=== PATIENT | female | born 1965 | race African-American/Black ===

== ENCOUNTER 2023-10-25 09:24 | Outpatient (AMB) | payer BC, SELFPAY ==
--- NOTE | 2023-10-25 09:32 | AM.OFFWIN_ITS ---
Intake Vital Signs 10/25/23 09:35 Height 5 ft 1 in Weight 140 lb BMI 26.4 BP 142/80 H Blood Pressure Location Rt brachial Position Sitting Pulse 97 Pulse Source Pulse Oximeter Temp 97.8 F Temp Source Temporal Artery Scan Pulse Oximetry (%) 97 Oxygen Delivery Method Room Air Intake Visit Reasons: EP Work clearance/COVID +10/19 Intake Note: pt is here for c/o covid + 10/19 would like work clearance Patient Tobacco Use Status: Never used Tobacco Allergies No Known Allergies Allergy (Verified 10/25/23 09:33) Do you need a note to return to daycare/school/sports/work: Yes HPI HPI Comments History of Present Illness Details Pt is a 58yo F who presents for work clearance Needs clearance for back to work post 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 She was + COVID 19 on 10/[address], fatigue, cough She had fever of 102 She has been fever free x 4 days Only symptoms that remain is fatigue Eat and drinking well No paxlovid taken She has been increased fluids without other OTC medicine She is on DAY 6 of infection PFS Patient Tobacco Use Status: Never used Tobacco Review of Systems Const Reports body aches (resolved), Reports chills (esolved), Reports fatigue, Reports fever(s) (afebrile x 4 days) and Reports malaise ENT Denies dysphagia, Denies dizziness, Denies ear discharge, Reports nasal congestion and Denies sore throat Card Denies chest pain, Denies dyspnea and Denies dyspnea on exertion Resp Reports cough, Denies dyspnea and Denies dyspnea on exertion GI Denies abdominal pain, Denies constipation, Denies dysphagia, Denies diarrhea and Denies nausea Neuro Denies dizziness Endo Reports fatigue Physical Exam Vital Signs: Last Vital Signs Temp 97.8 F 10/25/23 09:35 Pulse 97 10/25/23 09:35 BP 142/80 H 10/25/23 09:35 Pulse Ox 97 10/25/23 09:35 Oxygen Delivery Method Room Air 10/25/23 09:35 BMI result Body Mass Index 26.4 General: Non-toxic, NAD. Speaking full sentences. Wearing mask Skin: Warm dry throughout Eye: PERRL, EOMI HENT: Airway patent. Uvula midline. No pharyngeal erythema or edema. No FORMING ACID DUMPER. Bilateral canals clear. TM non-erythematous, non-bulging. No TM perforation or hemotympanum noted. Respiratory: CTA bilaterally. No wheezes, rales or rhonchi Cardiac: RRR. No murmur MSK: No midline tenderness. Full ROM extremities. Neurology: A/O x 3. No aphasia or facial droop. Equal strength. Gait without abnormality Psych: Good mood and affect Assessment & Plan Assessment & Plan (1) Post covid-19 condition, unspecified: Code(s): U09.9 - Post COVID-19 condition, unspecified Plan Patient seen and evaluated. She is on day 6 of COVID. She has been fever free for 4 days. Discussed with her that she has to wear a mask for a total of 10 days from symptom onset. She has clear lungs to examination and is in no acute distress. Patient was found to be hypertensive in the office and states that she has white coat syndrome. She denies any headaches or dizziness, chest pain or palpitations there was advised to monitor her blood pressure and follow-up with her primary care provider in regard to this. Patient was cleared to go back to work with strict mass going for an additional 4 days. She will go to the emergency department with any new onset of symptoms or concerns. Patient gave verbal understanding and has no additional questions at this time. Coding Level of Care Code Est Pt Level 3 (08003) Diagnoses Post covid-19 condition, unspecified U09.9
[2023-10-25 09:35] VITALS: BP 142/80; PULSE 97; TEMP 36.6; O2SAT 97; BMI 26.4
== END 2023-10-25 10:06 | disposition home or self-care (01) ==
PROVIDERS: PCP Internal Medicine; Visit Provider Physician Assistant
DX: U09.9 Post COVID-19 condition, unspecified (principal)
CPT/HCPCS: 99213

== ENCOUNTER 2023-11-20 13:39 | Outpatient (REF) | payer BC, SELFPAY ==
[2023-11-20 16:33] LABS: Appearance Urine Clear; Color Urine Yellow; Glucose Urine UA Negative (Negative); Leukocyte Esterase Urine Trace (Negative); Nitrite Urine Negative (Negative); Specific Gravity - Urine <= 1.005 (1.005-1.025); UMIC TRIGGER UACC YES; Urine Blood Negative (Negative); Urine Ketones Negative (Negative); Urine Protein Negative (Neg-Trace)
[2023-11-20 16:46] LABS: MANUAL DIFF FLAG NO
[2023-11-20 16:51] LABS: Basophils Percent Auto 0.6 % (0-2); Eosinophils Absolute Auto 0.2 X10*3/uL (0.0-0.4); Eosinophils Percent Auto 3.2 % (0-4); Hematocrit 36.7 % (37.0-47.0); Hemoglobin 11.5 g/dl (12.0-16.0); Imm Gran Abs Auto 0.02 X10*3/uL (0.00-0.03); Imm Gran Pct Auto 0.3 % (0.0-0.4); Lymphocytes Absolute Auto 2.5 X10*3/uL (1.2-4.9); Mean Corpuscular HGB Conc 31.3 g/dl (31.0-35.0); Mean Corpuscular Volume 79.8 fL (80.0-98.0); Mean Platelet Volume 11.8 fL (9.4-12.3); Monocytes Absolute Auto 0.7 X10*3/uL (0.1-1.2); Monocytes Percent Auto 9.8 % (2-11); Neutrophils Absolute Auto 3.4 x10*3/uL (2.0-8.3); Neutrophils Percent Auto 49.1 % (45-73); Platelet Count 357 X10*3/uL (160-400); Red Cell Distribution Width 15.8 % (11.0-16.0); White Blood Count 6.9 X10*3/uL (4.8-10.8)
[2023-11-20 17:03] LABS: Bacteria Urine None Seen (None Seen); Hyaline Casts Urine 0-2 /LPF (0-2); RBC Urine 0-2 /HPF (0-2); Squamous Epithelial Cell Urine 0-2 /HPF (0-2); WBC Urine 0-5 /HPF (0-5)
[2023-11-20 17:38] LABS: Alanine Aminotransferase 20 U/L (0-31); Alkaline Phosphatase 97 U/L (39-117); Anion Gap 11 (12-20); Aspartate Amino Transferase 22 U/L (5-31); Bilirubin Total 0.9 mg/dL (0.0-1.0); Blood Urea Nitrogen 7 mg/dL (9-16); Calcium 9.8 mg/dL (8.4-10.2); Carbon Dioxide 27 mmol/L (22-29); Chloride 104 mmol/L (96-108); Cholesterol 218 mg/dL (<200); Estimated Glomerular Filt Rate > 60; Glucose Random 126 mg/dL (60-115); HDL Cholesterol 37 mg/dL (>40); LDL Cholesterol Calculated 133 mg/dL (<100); Potassium 3.5 mmol/L (3.3-5.1); Sodium 138 mmol/L (135-145); Triglycerides 244 mg/dL (<150)
[2023-11-20 17:49] LABS: TSH reflex Free T4 0.93 uIU/mL (0.32-4.0)
[2023-11-26 18:19] LABS: Vitamin D 25-OH, D2 <4 ng/mL; Vitamin D 25-OH, D3 16 ng/mL; Vitamin D 25-OH, Total 16 ng/mL (30-100)
== END 2023-11-20 13:40 | disposition home or self-care (01) ==
LOC: HO.HMGCLDS 13:39
PROVIDERS: PCP Nurse Practitioner Primary Care; Visit Provider Nurse Practitioner Primary Care
DX: E55.9 Vitamin D deficiency, unspecified (principal); D64.9 Anemia, unspecified; E87.8 Other disorders of electrolyte and fluid balance, not elsewhere classified; E78.5 Hyperlipidemia, unspecified; E03.9 Hypothyroidism, unspecified
CPT/HCPCS: 36415; 80053; 80061; 81001; 82306; 84443; 85025

== ENCOUNTER 2023-11-21 08:57 | Outpatient (AMB) | payer BC, SELFPAY ==
[2023-11-21 09:02] VITALS: BP 162/78; PULSE 84; O2SAT 99; BMI 25.9
--- NOTE | 2023-11-21 09:02 | MHC.PC.OV ---
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 Intake Note: Pt is here today as a New Patient to [facility]/ PE: Never had a colonoscopy Allergies No Known Allergies Allergy (Verified 11/21/23 09:14) Medication List - Last Reconciled 11/21/23 by DOTTIE Mendes No Known Home Meds Tobacco use date assessed: 11/21/23 Dental Screening Dental Screen Date: 11/21/23 Did you have a dental visit in the last 12 months?: Yes Did you have a dental problem in the last 6 months where you did not have access to dental care?: No Was dental information given to patient?: Patient has dentist HPI HPI Comments History of Present Illness Details Patient is a 58-year-old female here to [facility] and have her annual physical exam. She is due for her flu immunization which she will get today in office. She is due for COVID immunization. She is due for colonoscopy, will refer to Stephanie CARABALLO. She is up-to-date with her mammogram which she last had done through [facility]. She is due for Pap smear, last one was performed April 2021. She has no complaints time the appointment. [facility] Surgical History (Updated 11/21/23 @ 09:39 by DOTTIE Mendes) History of cholecystectomy Family History Mother Non-insulin dependent type 2 diabetes mellitus Social History Housing: Condominium Patient Tobacco Use Status: Never used Tobacco e-Cigarette/Vaping Use: Never Used service: No Current occupational status: employed Cognitive needs: No Hearing needs: No Vision needs: No Questionnaire PHQ-9 Over the last 2 weeks, how often have you been bothered by any of the following problems? 1. Little interest or pleasure in doing things: not at all 2. Feeling down, depressed, or hopeless: not at all 3. Trouble falling or staying asleep, or sleeping too much: not at all 4. Feeling tired or having little energy: not at all 5. Poor appetite or overeating: not at all 6. Feeling bad about yourself - or that you are a failure or have let yourself or your family down: not at all 7. Trouble concentrating on things, such as reading the newspaper or watching television: not at all 8. Moving or speaking so slowly that other people could have noticed. Or the opposite - being so fidgety or restless that you have been moving around a lot more than usual: not at all 9. Thoughts that you would be better off or of hurting yourself in some way: not at all Total score: 0 Depression Screening Interpretation: Negative Depression Screening Done: Yes 77151 - PHQ-9 Billing: Yes Source: Developed by Drs. Musa Ch, Nicolasa Back, Abdias Nunez and colleagues, with an educational bakari from [employer]. Thrive Questionnaire Date Thrive assessed: 11/21/23 I am a: Patient What is your living situation today?: I have a steady place to live Within the past 12 months, did the food you bought not last and you didn't have the money to get more?: Never true Within the past 12 months, did you worry whether your food would run out before you got money to buy more?: Never true Do you have trouble paying for medicines?: No Do you have trouble getting transportation to medical appointments?: No Do you have trouble paying your heating and electricity bill?: No Do you have trouble taking care of your child, family member or friend?: No Do you have trouble with day-to-day activities such as bathing, preparing meals, shopping, managing finances, etc.?: No Are you currently unemployed and looking for a job?: No Are you interested in more education?: No AUDIT C Alcohol Use Questionnaire (AUDIT-C) 1. How often do you have a drink containing alcohol?: Never Total Score: 0 WONG-7 AMB Questionnaire WONG-7 Date WONG - 7 assessed: 11/21/23 Feeling nervous, anxious, or on edge: 0 = Not at all Not being able to stop or control worryin = Not at all Worrying too much about different things: 0 = Not at all Trouble relaxin = Not at all Being so restless that it is hard to sit still: 0 = Not at all Becoming easily annoyed or irritable: 0 = Not at all Feeling afraid as if something awful might happen: 0 = Not at all Total WONG-7 score (0-4 normal; 5-9 mild; 10-14 moderate; 15-21 severe): 0 Source: Developed by Drs. Musa Ch, Nicolasa Back, Abdias Nunez and colleagues, with an educational bakari from [employer]. WONG-7 Assessment Billing WONG-7 Assessment Tool: WONG-7 Assessment 91869 Review of Systems Const Details: Constitutional : No Weight loss, No Fever, No Chills, No Fatigue, No Malaise ENT/Mouth : No sore throat, No Rhinorrhea Eyes: No Eye Pain, No Swelling, No Redness Cardiovascular : No Chest Pain, No SOB, No Dyspnea on Exertion, No Orthopnea, No Edema, No Palpitations Respiratory : No Cough, No Sputum, No Wheezing Gastrointestinal : No Nausea, No Vomiting, No Diarrhea, No Constipation, No abdominal Pain, No Hematochezia, No Melena Genitourinary : No Dysuria, No Urinary Frequency, No Hematuria, Musculoskeletal : No joint pain, No Myalgias, No Joint Swelling Skin : No Skin Lesions, No rash Neuro : No Weakness, No Numbness, No Dizziness, No Headache Psych : No Anxiety/Panic, No Depression Heme/Lymph: No Bruising, No Bleeding,No Lymphadenopathy Endocrine : No Polyuria, No Polydipsia All other systems reviewed and are negative Physical exam (Primary Care) Vital Signs: Last Vital Signs Pulse 84 11/21/23 09:02 BP 162/78 H 11/21/23 09:02 Pulse Ox 99 11/21/23 09:02 Oxygen Delivery Method Room Air 11/21/23 09:02 Care Plan Goal for BP management: Patient does not want to start blood pressure medication at this time. She states that readings at home are off the much lower. Next steps: Patient wants to take blood pressure measurement readings at home. She will send in measurement readings over the next 2 weeks, if they remain elevated patient has agreed to start medication. BMI result Body Mass Index 25.9 Tobacco/Smoking Status: Tobacco use Status Tobacco use date assessed 11/21/23 11/21/23 09:08 Patient Tobacco Use Status Never used Tobacco 11/21/23 09:04 e-Cigarette/Vaping Use Never Used 11/21/23 09:08 PHQ-9: PHQ-9 Score PHQ-9: Total score 0 11/21/23 10:02 Depression Screening Interpretation: Negative Thrive Assessment: Date of Thrive Assessment Date Thrive assessed 11/21/23 11/21/23 09:47 Const Other: Appearance: Alert.? Oriented X3.? No acute distress.? Head: Normocephalic Eyes: Pupils equal, round and reactive to light.? ENT: Pharynx normal.?TM intact, pearly nash. Septum midline. Neck: Normal inspection.? Neck supple.? CVS: Normal heart rate and rhythm.? Pulses normal.? Respiratory: No respiratory distress.? Breath sounds normal.? Abdomen: Soft and nontender.? Skin: Skin warm and dry.? Normal skin color.? Normal skin turgor.? Extremities: No lower extremity edema.? Back: No midline tenderness, no C-spine tenderness, full range of motion, no CVA tenderness bilaterally Neuro: Oriented X 3.? No motor deficit.? No sensory deficit. CN 2-12 intact Office Procedures Flu Questionnaire Does the patient have a severe egg allergy?: No Does the patient have severe life threatening allergies?: No Does the patient have a fever or illness today?: No Has the patient ever had Guillain-Elmer Syndrome?: No Has the patient ever had any past reaction to a flu shot?: No Immunizations flu vacc [id number] 6mos up(PF) 60 mcg(15 mcgx4)/0.5 mL IM syringe Performing Provider: DOTTIE Mendes Performing Location: [facility] Administered by: Zora Angelo CMA on 11/21/23 09:48 Dose Route Admin Location Dispensed Lot Number Expiration Date NDC Lead Application Architect 0.5 mL IM Right Deltoid 0.5 mL [id number] 05/31/24 20115-500-[address] VIS Given Date VIS Provided VIS Publication Date 11/21/23 Single Vaccine 21 Eligibility Eligibility Date Funding Source Not VFC Eligible 11/21/23 Private Results Reviewed Results Reviewed: Sodium 138 135-145 mmol/L Potassium 3.5 3.3-5.1 mmol/L CL 104 96-108 mmol/L CO2 27 22-29 mmol/L Gap 11 L 12-20 BUN 7 L 9-16 mg/dL Creat 0.72 0.5-1.4 mg/dL EGFR > 60 NOTE: For -[place] individuals, multiply the result by 1.210. Chronic Kidney Disease: Estimated GFR < 60 mL/min/1.73m2 Severe Kidney Disease: Estimated GFR < 15 mL/min/1.73m2 Glucose, Random 126 H 60-115 mg/dL CA 9.8 8.4-10.2 mg/dL Total Bili 0.9 0.0-1.0 mg/dL AST (GOT) 22 5-31 U/L ALT (GPT) 20 0-31 U/L Protein, Total 7.0 6.5-8.0 g/dL Alb 4.0 3.5-5.0 g/dL Triglyceride 244 H <150 mg/dL Desirable Triglyceride: less than 150 mg/dL Borderline High Triglyceride 150-199 mg/dL High Triglyceride: 200-499 mg/dL Very High Triglyceride: greater than or equal to 5OO mg/dL Cholesterol 218 H <200 mg/dL Desirable Cholesterol: less than 200 mg/dL Borderline High Cholesterol: 200-239 mg/dL High Cholesterol: greater than 239 mg/dL LDL Calculated 133 H <100 mg/dL Desirable LDL: less than 100 mg/dL Near Optimal/Above Optimal LDL: 110-129 mg/dL Borderline High LDL: 130-159 mg/dL High LDL: 160-189 mg/dL Very High LDL: greater than or equal to 190 mg/dL HDL 37 L >40 mg/dL Desirable HDL: greater than 40 mg/dL Note: This HDL assay may give artificially low results in patients with liver disease. Alk Phos 97 39-117 U/L TSH 0.93 0.32-4.0 uIU/mL WBC 6.9 4.8-10.8 X10*3/uL RBC 4.60 4.20-5.50 X10*6/uL HGB 11.5 L 12.0-16.0 g/dl HCT 36.7 L 37.0-47.0 % MCV 79.8 L 80.0-98.0 fL MCH 25.0 L 27.0-33.0 pg MCHC 31.3 31.0-35.0 g/dl RDW 15.8 11.0-16.0 % PLT 357 160-400 X10*3/uL MPV 11.8 9.4-12.3 fL Neut Pct Auto 49.1 45-73 % ImGran Pct Auto 0.3 0.0-0.4 % Lymp Pct Auto 37.0 20-40 % Coles Pct Auto 9.8 2-11 % Eos Pct Auto 3.2 0-4 % Baso Pct Auto 0.6 0-2 % NRBC Pct Auto 0.0 0.0-0.2 /100WBC ANC Neut Abs # 3.4 2.0-8.3 x10*3/uL ImGran Abs Auto 0.02 0.00-0.03 X10*3/uL Lymph Abs Auto 2.5 1.2-4.9 X10*3/uL Coles Abs Auto 0.7 0.1-1.2 X10*3/uL Eos Abs Auto 0.2 0.0-0.4 X10*3/uL Baso Abs Auto 0.0 0.0-0.2 X10*3/uL NRBC Abs Auto 0.000 0.0-0.012 X10*3/uL Assessment and Plan Assessment & Plan (1) Encounter for routine adult physical exam with abnormal findings: Comment: Patient had labs drawn. Flu immunization given today in office. Will refer to GI for colonoscopy. Will refer to Stephanie MORSE for Pap smear well-woman visit. Code(s): Z00.01 - Encounter for general adult medical examination with abnormal findings (2) Hypertension: Comment: Patient denies medication at this time. She is going to take a log book at home and get back to the office with what her values have been over the past 2 weeks. If values are still elevated at home the patient has agreed to start medication. She has been educated on signs of worsening symptoms when to report back to the office or when to present to the emergency room. Code(s): I10 - Essential (primary) hypertension Qualifiers: Hypertension type: primary hypertension Qualified Code(s): I10 - Essential (primary) hypertension (3) Hyperlipidemia: Comment: Patient declines statin therapy at this time. Would like to try to lower lipid level with diet and exercise. Will continue to monitor Code(s): E78.5 - Hyperlipidemia, unspecified Qualifiers: Hyperlipidemia type: unspecified Qualified Code(s): E78.5 - Hyperlipidemia, unspecified (4) Anemia: Comment: Patient would like to increase dietary iron. Patient has been educated on signs of worsening symptoms and when to report back to the office or when to present to the emergency room. Code(s): D64.9 - Anemia, unspecified Qualifiers: Anemia type: unspecified type Qualified Code(s): D64.9 - Anemia, unspecified Plan Patient will return to the office in 3 months for follow-up. Orders: Orders Comprehensive Met. Panel 11/20/23 E87.8 - Other disorders of electrolyte and fluid balance, not elsewhere classified Lipid Panel 11/20/23 E78.5 - Hyperlipidemia, unspecified Vitamin D 25-OH (D2 and D3) 11/20/23 E55.9 - Vitamin D deficiency, unspecified TSH reflex Free T4 11/20/23 E03.9 - Hypothyroidism, unspecified UA CC w/rflx Micro + Cult 11/20/23 E86.0 - Dehydration Complete Blood Count Auto Diff 11/20/23 D64.9 - Anemia, unspecified Influenza [id number] Immunization Today Z23 - Encounter for immunization Referrals Gastroenterology Referral Z12.11 - Encounter for screening for malignant neoplasm of colon GOVERNMENT GUARD Referral Z12.4 - Encounter for screening for malignant neoplasm of cervix Coding Level of Care Code New Pt Level 4 (15637) Diagnoses Encounter for routine adult physical exam with abnormal findings Z00.01 Primary hypertension I10 Hypertension type: primary hypertension Hyperlipidemia, unspecified hyperlipidemia type E78.5 Hyperlipidemia type: unspecified Anemia, unspecified type D64.9 Anemia type: unspecified type Additional Codes WONG-7 Assessment Billing - WONG-7 Assessment Tool: WONG-7 Assessment 91188 ([id number])
== END 2023-11-21 09:56 | disposition home or self-care (01) ==
PROVIDERS: PCP Internal Medicine; Visit Provider Nurse Practitioner Primary Care
DX: Z00.01 Encounter for general adult medical examination with abnormal findings (principal); I10 Essential (primary) hypertension; E78.5 Hyperlipidemia, unspecified; D64.9 Anemia, unspecified
CPT/HCPCS: 90471; 90686; 99204

== ENCOUNTER 2024-01-10 08:28 | Outpatient (AMB) | payer BC, SELFPAY ==
--- NOTE | 2024-01-10 08:39 | MHC.OFFVIS ---
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 She is doing well with no concerns. Attempting to eat a healthy diet with calcium and vitamin D and stays active with exercise. Currently not sexually active. Denies any vaginal dryness or irritation. No menses in several years. STI testing offered; she declines. Last pap smear; unknown date. Last mammogram; not UTD. Colonoscopy is being planned. Denies any family history of breast, ovarian or colon cancer. 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-[employer] Cognitive needs: No Hearing needs: No Vision needs: No Female Reproductive History Menstrual control method: none Total pregnancies: 1 Full term: 1 History of abnormal pap smear: No (per patient ,previous pap neg.2022) Review of Systems Const All systems reviewed & are unremarkable except as noted in HPI and below Reports as per HPI Eyes Reports no additional complaints ENT Reports no additional complaints Card Reports no additional complaints Resp Reports no additional complaints GI Reports as per HPI and Reports no additional complaints Reports as per HPI Musc Reports no additional complaints Skin/Breast Reports as per HPI Neuro Reports no additional complaints Psych Reports no additional complaints Endo Reports no additional complaints Vicente/Lymph Reports no additional complaints Aller/Immun Reports no additional complaints Physical Exam Const General: cooperative, healthy appearing, no acute distress, well developed and alert Orientation/consciousness: patient oriented x3 HEENT Head: Yes normal to inspection Eyes General: appearance normal, both eyes and all related structures Neck Neck: Yes normal visual inspection Thyroid: Thyroid normal Chest Chest palpation & inspection: normal inspection of the chest and other (no puckering, dimpling, peau de orange, retraction, discharge, masses) Breast/axilla inspection: normal inspection of the breasts Breast/axilla palpation: normal palpation of the breasts Resp Effort & Inspection: normal respiratory effort GI Inspection: Yes normal to inspection Palpation (GI): Soft to palpation Rectal Exam - Female: deferred General: Yes bladder normal to palpation External Female Exam: normal external appearance and normal appearance of the urethra Speculum Exam - Vagina: normal appearance of the vagina, normal palpation, normal vaginal discharge and vagina atrophic Speculum Exam - Cervix: normal appearance of the cervix, normal palpation and Other cervical findings present (Short cervix appearance, bled w/pap) Bimanual exam- vagina & uterus: normal bimanual exam, normal palpation, uterine size normal, bladder normal to palpation, normal palpation and non-tender Bimanual Exam- Adnexa, other: no masses Skin General skin exam: no rashes or lesions noted Rashes: no rashes Neuro General: patient oriented x3 Cognition (Neuro): normal cognition Extrem General: Yes normal to inspection Psych Attitude: cooperative Thought process: Normal thought process present Assessment & Plan Assessment & Plan (1) Encounter for well woman exam with routine gynecological exam: Code(s): Z01.419 - Encounter for gynecological examination (general) (routine) without abnormal findings Plan Discussed: Current recommendations for pap smears per ASCCP guidelines. Breast awareness, periodic self breast exams and yearly mammogram. Maintain a healthy lifestyle, well balanced diet including Calcium 1,200 mg and Vitamin D 600 IU daily, and routine exercise. Use of condoms for STI if indicated. Contact the office with any postmenopausal bleeding. Patient verbalizes understanding and agrees to the plan of care. She was given opportunity to ask questions and all questions were answered to the best of my ability. RTO in 1 year for annual vegetable buncher exam. This note is constructed using voice recognition software. While every effort has been made to ensure accuracy, doctorate of chiropractic errors may have been included. Orders: Orders MM tomosynthesis screening BI Today Z12.31 - Encounter for screening mammogram for malignant neoplasm of breast Coding Level of Care Code New Pt Prev Care 40-64y(56869) Diagnoses Encounter for well woman exam with routine gynecological exam Z01.419
[2024-01-10 08:55] VITALS: BP 148/76; BMI 28.2
== END 2024-01-10 09:20 | disposition home or self-care (01) ==
PROVIDERS: PCP Nurse Practitioner Primary Care; Visit Provider Advanced Practice Midwife
DX: Z01.419 Encounter for gynecological examination (general) (routine) without abnormal findings (principal)
CPT/HCPCS: 99386

== ENCOUNTER 2024-01-10 08:28 | Outpatient (REF) | payer BC, SELFPAY ==
[2024-01-13 20:09] LABS: HPV mRNA E6/E7 rflx Not Detected (Not Detected)
== END 2024-01-10 08:29 | disposition home or self-care (01) ==
LOC: HO.LNP 08:28
PROVIDERS: PCP Nurse Practitioner Primary Care; Visit Provider Advanced Practice Midwife
DX: Z01.419 Encounter for gynecological examination (general) (routine) without abnormal findings (principal); Z11.51 Encounter for screening for human papillomavirus (HPV)
CPT/HCPCS: 87624; 88142

== ENCOUNTER 2024-04-03 08:50 | Outpatient (AMB) | payer BC, SELFPAY ==
[2024-04-03 08:51] VITALS: BP 148/74; PULSE 74; O2SAT 98; BMI 27.2
--- NOTE | 2024-04-03 08:51 | MHC.PC.OV ---
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 Accompanied by: Self / Same As Patient Allergies No Known Allergies Allergy (Verified 04/03/24 09:18) Medication List - Last Reconciled 04/03/24 by DOTTIE Mendes amlodipine 10 mg PO DAILY cholecalciferol (vitamin D3) 50,000 units PO QWEEK Tobacco use date assessed: 04/03/24 Dental Screening Dental Screen Date: 04/03/24 Did you have a dental visit in the last 12 months?: Yes Did you have a dental problem in the last 6 months where you did not have access to dental care?: No Was dental information given to patient?: Patient has dentist HPI HPI Comments History of Present Illness Details Patient is a 59-year-old female in today for follow-up on hypertension. Patient has been keeping record at home with blood pressure logs at home which demonstrated blood pressure in control. Patient states that she did run out of medication 3 days prior to this appointment has not taken it for the past 3 days. Patient denies chest pain, headache, dizziness, numbness, nausea, vomiting, diarrhea. Patient instructed to continue taking 10 mg of amlodipine at night. Patient will also get labs today including CBC, CMP, A1c, vitamin-D. Patient has strong family history of diabetes type 2. Previous CMP demonstrated slightly elevated random glucose levels, patient denies polyuria polydipsia. Patient has been eating dietary iron for slight anemia. Patient has upcoming appointment for colonoscopy. Patient is due for mammogram in 1 month. Referral is in. 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 1. Little interest or pleasure in doing things: not at all 2. Feeling down, depressed, or hopeless: not at all 3. Trouble falling or staying asleep, or sleeping too much: not at all 4. Feeling tired or having little energy: not at all 5. Poor appetite or overeating: not at all 6. Feeling bad about yourself - or that you are a failure or have let yourself or your family down: not at all 7. Trouble concentrating on things, such as reading the newspaper or watching television: not at all 8. Moving or speaking so slowly that other people could have noticed. Or the opposite - being so fidgety or restless that you have been moving around a lot more than usual: not at all 9. Thoughts that you would be better off or of hurting yourself in some way: not at all Total score: 0 Depression Screening Interpretation: Negative Depression Screening Done: Yes 87553 - PHQ-9 Billing: Yes Source: Developed by Drs. Musa Ch, Nicolasa Back, Abdias Nunez and colleagues, with an educational bakari from [employer]. Thrive Questionnaire Date Thrive assessed: 04/03/24 I am a: Patient What is your living situation today?: I have a steady place to live Within the past 12 months, did the food you bought not last and you didn't have the money to get more?: Never true Within the past 12 months, did you worry whether your food would run out before you got money to buy more?: Never true Do you have trouble paying for medicines?: No Do you have trouble getting transportation to medical appointments?: No Do you have trouble paying your heating and electricity bill?: No Do you have trouble taking care of your child, family member or friend?: No Do you have trouble with day-to-day activities such as bathing, preparing meals, shopping, managing finances, etc.?: No Are you currently unemployed and looking for a job?: No Are you interested in more education?: No Please select the resources that you would like help with: None Currently or been in a relationship where the following occur: no concerns reported THRIVE Score: 0 AUDIT C Alcohol Use Questionnaire (AUDIT-C) 1. How often do you have a drink containing alcohol?: Never 3. How often do you have six or more drinks on one occasion?: Never Total Score: 0 Score Reviewed/Action Taken: Yes WONG-7 AMB Questionnaire WONG-7 Date WONG - 7 assessed: 04/03/24 Feeling nervous, anxious, or on edge: 0 = Not at all Not being able to stop or control worryin = Not at all Worrying too much about different things: 0 = Not at all Trouble relaxin = Not at all Being so restless that it is hard to sit still: 0 = Not at all Becoming easily annoyed or irritable: 0 = Not at all Feeling afraid as if something awful might happen: 0 = Not at all Total WONG-7 score (0-4 normal; 5-9 mild; 10-14 moderate; 15-21 severe): 0 Source: Developed by Drs. Musa Ch, Nicolasa Back, Abdias Nunez and colleagues, with an educational bakari from [employer]. WONG-7 Assessment Billing WONG-7 Assessment Tool: WONG-7 Assessment 01541 Review of Systems Const All systems reviewed & are unremarkable except as noted in HPI and below Physical exam (Primary Care) Vital Signs: Last Vital Signs Pulse 74 04/03/24 08:51 BP 148/74 H 04/03/24 08:51 Pulse Ox 98 04/03/24 08:51 Oxygen Delivery Method Room Air 04/03/24 08:51 Care Plan Goal for BP management: Patient had refill of amlodipine 10 mg BMI result Body Mass Index 27.2 Tobacco/Smoking Status: Tobacco use Status Tobacco use date assessed 04/03/24 04/03/24 08:52 Patient Tobacco Use Status Never used Tobacco 04/03/24 08:52 e-Cigarette/Vaping Use Never Used 04/03/24 08:52 PHQ-9: PHQ-9 Score PHQ-9: Total score 0 04/03/24 08:54 Depression Screening Interpretation: Negative Thrive Assessment: Date of Thrive Assessment Date Thrive assessed 04/03/24 04/03/24 08:54 Currently or been in a relationship where the following occur: no concerns reported Const Other: Appearance: Alert.? Oriented X3.? No acute distress.? Head: Normocephalic, atraumatic. Neck: Normal inspection.? Neck supple.? CVS: Normal heart rate and rhythm.? Pulses normal.? Respiratory: No respiratory distress.? Breath sounds normal.? Neuro: Oriented X 3.? Results Reviewed Results Reviewed: WBC 6.9 4.8-10.8 X10*3/uL RBC 4.60 4.20-5.50 X10*6/uL HGB 11.5 L 12.0-16.0 g/dl HCT 36.7 L 37.0-47.0 % MCV 79.8 L 80.0-98.0 fL MCH 25.0 L 27.0-33.0 pg MCHC 31.3 31.0-35.0 g/dl RDW 15.8 11.0-16.0 % PLT 357 160-400 X10*3/uL MPV 11.8 9.4-12.3 fL Neut Pct Auto 49.1 45-73 % ImGran Pct Auto 0.3 0.0-0.4 % Lymp Pct Auto 37.0 20-40 % Fannin Pct Auto 9.8 2-11 % Eos Pct Auto 3.2 0-4 % Baso Pct Auto 0.6 0-2 % NRBC Pct Auto 0.0 0.0-0.2 /100WBC ANC Neut Abs # 3.4 2.0-8.3 x10*3/uL ImGran Abs Auto 0.02 0.00-0.03 X10*3/uL Lymph Abs Auto 2.5 1.2-4.9 X10*3/uL Fannin Abs Auto 0.7 0.1-1.2 X10*3/uL Eos Abs Auto 0.2 0.0-0.4 X10*3/uL Baso Abs Auto 0.0 0.0-0.2 X10*3/uL NRBC Abs Auto 0.000 0.0-0.012 X10*3/uL Assessment and Plan Assessment & Plan (1) Anemia: Comment: Patient would like to increase dietary iron. Will draw CBC today. Patient has been educated on signs of worsening symptoms and when to report back to the office or when to present to the emergency room. Code(s): D64.9 - Anemia, unspecified Qualifiers: Anemia type: unspecified type Qualified Code(s): D64.9 - Anemia, unspecified (2) Vitamin D deficiency: Comment: Patient has been taking 52990 units vitamin D3 per week. Will redraw today. Code(s): E55.9 - Vitamin D deficiency, unspecified (3) Hyperlipidemia: Comment: Patient declines statin therapy at this time. Would like to try to lower lipid level with diet and exercise. Will continue to monitor. Code(s): E78.5 - Hyperlipidemia, unspecified Qualifiers: Hyperlipidemia type: unspecified Qualified Code(s): E78.5 - Hyperlipidemia, unspecified (4) Hypertension: Comment: Will refill amlodipine. Patient will continue to record blood pressure values at home. Code(s): I10 - Essential (primary) hypertension Qualifiers: Hypertension type: primary hypertension Qualified Code(s): I10 - Essential (primary) hypertension Plan: Patient will get labs. Orders: Orders Hemoglobin A1c Today Z13.1 - Encounter for screening for diabetes mellitus Complete Blood Count Auto Diff Today D64.9 - Anemia, unspecified Comprehensive Met. Panel Today Z91.89 - Other specified personal risk factors, not elsewhere classified Medications: New amlodipine 10 mg PO DAILY 90 tabs 0RF Discontinued amlodipine Discontinued Reason: Doctor's Order 5 mg PO DAILY 30 tabs 0RF Coding Level of Care Code Est Pt Level 3 (66821) Diagnoses Anemia, unspecified type D64.9 Anemia type: unspecified type Vitamin D deficiency E55.9 Hyperlipidemia, unspecified hyperlipidemia type E78.5 Hyperlipidemia type: unspecified Primary hypertension I10 Hypertension type: primary hypertension Additional Codes WONG-7 Assessment Billing - WONG-7 Assessment Tool: WONG-7 Assessment 36980 ([id number]) Time Spent (min) 26
== END 2024-04-03 10:21 | disposition home or self-care (01) ==
PROVIDERS: PCP Nurse Practitioner Primary Care; Visit Provider Nurse Practitioner Primary Care
DX: D64.9 Anemia, unspecified (principal); E55.9 Vitamin D deficiency, unspecified; E78.5 Hyperlipidemia, unspecified; I10 Essential (primary) hypertension
CPT/HCPCS: 99213

== ENCOUNTER → 2024-04-13 09:20 | Outpatient (AMB) | payer BC, SELFPAY ==
[2024-04-13 09:25] VITALS: BP 156/77; PULSE 84; BMI 27.0
--- NOTE | 2024-04-13 09:25 | MHC.OFFVIS ---
Vital Signs 04/13/24 09:25 Height 5 ft 1 in Weight 142 lb 13.753 oz BMI 27.0 BP 156/77 H Blood Pressure Location Lt brachial Position Sitting Pulse 84 Intake Visit Reasons: Colonoscopy screening Intake Note: Rosa presents to in office visit today for colonoscopy screening. CC: This will be the patient's first colonoscopy. She denies having any GI symptoms or concerns today.. Allergies No Known Allergies Allergy (Verified 04/13/24 09:25) HPI HPI Colonoscopy screening: Details: 59 year old? female with past medical history of anemia, hyperlipidemia, hypertension is here today for pre colonoscopy screening.? Patient was sent to us by her PCP.? This is her first colonoscopy screening.? Patient denies any gastrointestinal symptoms in the past or at present.? Denies any personal or family history of gastrointestinal disease, colon polyps, or CRC.? Denies history of difficulty with sedation or anesthesia in the past.? Negative for history of sleep apnea.? Denies any history of cardiac, renal, pulmonary, or hepatic disease.?? No history of infectious? diseases like hepatitis A, B, C, HIV or tuberculosis.? 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[employer] Cognitive needs: No Hearing needs: No Vision needs: No Review of Systems Const Denies weight gain and Denies weight loss ENT Reports no additional complaints, Denies dysphagia and Denies odynophagia Card Reports no additional complaints Resp Reports no additional complaints GI Denies abdominal pain, Denies belching, Denies melena, Denies bloating, Denies change in bowel habits, Denies dysphagia, Denies excessive flatus, Denies dyspepsia, Denies heartburn, Denies diarrhea, Denies loose stools, Denies nausea, Denies odynophagia and Denies vomiting Musc Reports no additional complaints Neuro Reports no additional complaints Psych Reports no additional complaints Endo Reports no additional complaints Physical Exam Vital Signs: BMI result Body Mass Index 27.0 Const General: healthy appearing, no acute distress and well developed Nutritional Appearance: well nourished Orientation/consciousness: patient oriented x3 Resp Effort & Inspection: normal respiratory effort, able to speak in complete sentences, no tracheal deviation and symmetric chest movement Auscultation: clear to auscultation bilaterally Cardio Rate: regular rate GI Inspection: Yes normal to inspection and No distended Palpation (GI): Soft to palpation, not firm, nontender and No hepatosplenomegaly present Auscultation: normal bowel sounds General: Yes no CVA tenderness Back/Spine/Pelvis Back: no CVA tenderness Skin General skin exam: elasticity normal, turgor normal and dry skin Neuro General: patient oriented x3 Psych Appearance: grossly normal Mental Status: mental status grossly normal Speech and movement: Normal speech and movement present Assessment & Plan Assessment & Plan (1) Screen for colon cancer: Code(s): Z12.11 - Encounter for screening for malignant neoplasm of colon Plan Patient denies any GI, cardiac or respiratory symptoms.? Denies any issues with anesthesia in the past.? Denies any history of sleep apnea.? No history infectious diseases in the past or present.? Not on any anticoagulation therapy.? No family or personal history of colon cancer or polyps.? Patient denies melena, hematochezia, unintentional weight loss or ribbon like stools.? Discussed at length the pre-procedure,? prep, diet & medications as well as what to expect prior, during and after the procedure.?? Stressed the importance of good bowel prep.? Recommended the use of Vaseline or Calmoseptine OTC & baby wipes with bowel movements to promote comfort.? ?Patient verbalizes understanding and agrees to plan of care.? She was given the opportunity to ask questions and all questions answered.? We will see her after the procedure.? Medications: New bisacodyl (Dulcolax (bisacodyl)) take 4 tabs at noon the day before your colonoscopy 20 mg (4 x 5 mg) PO ONCE 1 day 4 tabs 0RF Z12.11 - Encounter for screening for malignant neoplasm of colon polyethylene glycol 3350 (Miralax) As directed by gastroenterology department at [facility] 238 grams PO ONCE 238 grams 0RF Z12.11 - Encounter for screening for malignant neoplasm of colon Coding Level of Care Code New Pt Level 3 (99528) Diagnoses Screen for colon cancer Z12.11 Time Spent (min) 40 Comment 30 minutes spent with patient and additional 10 minutes spent reviewing her records
== END ==
PROVIDERS: PCP Nurse Practitioner Primary Care; Visit Provider Nurse Practitioner Family
DX: Z01.818 Encounter for other preprocedural examination (principal); Z12.11 Encounter for screening for malignant neoplasm of colon
CPT/HCPCS: S0285

== ENCOUNTER → 2024-04-13 09:20 | Outpatient (BNVA) | payer BC, SELFPAY | PROVIDERS: PCP Nurse Practitioner Primary Care; Visit Provider Nurse Practitioner Family ==

== ENCOUNTER 2024-10-12 10:53 | Day surgery (SDC) | payer BC, SELFPAY ==
[2024-10-08 12:56] VITALS: BMI 27.0
--- NOTE | 2024-10-09 12:37 | HO.ANESPROP2 ---
Documented by User: Marifer Vega NP 10/09/24 12:39 HPI - Anesthesia Eval Consult details Narrative: 59yo F for Colonoscopy PMFSH Active Problems Active Problems: All Active Problems Anemia (Acute) Hyperlipidemia (Acute) Encounter for routine adult physical exam with abnormal findings (Acute) Hypertension (Acute) Post covid-19 condition, unspecified (Acute) Paronychia of finger of left hand (Acute) Vitamin D deficiency (Acute) Past Medical History Medical History Hyperlipidemia Anemia HTN (hypertension) Vitamin D deficiency Family History Family History Mother Non-insulin dependent type 2 diabetes mellitus Surgical History Surgical History History of cholecystectomy Social History Social History [facility] Are you a primary direct care counselor to a significant other at home: No Do you presently have visiting nurse or other home services: No Alcohol intake: never Patient Tobacco Use Status: Never used Tobacco e-Cigarette/Vaping Use: Never Used Have you been hit, kicked, punched, or otherwise hurt by someone within the past year? 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[employer] Cognitive needs: No Hearing needs: No Vision needs: No Meds Allergies Allergy/AdvReac Type Severity Reaction Status Date / Time No Known Allergies Allergy Verified 10/12/24 11:16 Exam Height,Weight and Vital Signs: Height 5 ft 1 in Weight 64.864 kg Assessment and Plan Assessment Anesthesia Assessment: Chart Reviewed Documented by User: Arleen Cali MD 10/12/24 11:50 PMFSH Past Medical History Medical History Hyperlipidemia Anemia HTN (hypertension) Vitamin D deficiency Family History Family History Mother Non-insulin dependent type 2 diabetes mellitus Family history of problems with anesthesia: No Surgical History Surgical History History of cholecystectomy History of Problems with Anesthesia: No Social History Social History [facility] Are you a primary direct care counselor to a significant other at home: No Do you presently have visiting nurse or other home services: No Alcohol intake: never Patient Tobacco Use Status: Never used Tobacco e-Cigarette/Vaping Use: Never Used Have you been hit, kicked, punched, or otherwise hurt by someone within the past year? 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[employer] Cognitive needs: No Hearing needs: No Vision needs: No Meds Allergies Allergy/AdvReac Type Severity Reaction Status Date / Time No Known Allergies Allergy Verified 10/12/24 11:16 Exam Airway Mallampati Class: II (missing a couple) TM Dist: >3cm Neck ROM: Full Heart: rrr Lungs: cta Assessment and Plan Assessment Anesthesia Assessment: Anesthesia Plan Discussed Final Anesthetic Review Family History of Problems with Anesthesia: No History of Problems with Anesthesia: No NPO: Yes ASA Class: II Final Preanesthetic Review: No Changes in Pt Med Stat, Meds/Allgs Chart Reviewed and Consent Obtained/Reviewed Patient Risk: Low Procedure Risk: Low Anesthetic Plan Anesthetic Plan: MAC: Disposition: Standard PACU
--- NOTE | 2024-10-12 10:56 | P.HPSUR_ITS ---
Pre-Procedural Eval Section A - 24 Hr Update-Section A only Date of Service: 10/12/24 The patient is an INPATIENT: No The patient has been examined within 24 hours of the surgical procedure. The History & Physical has been completed within 30 days and I have reviewed it.: No Section B - Complete if H&P > 30 days Chief Complaint: screening Relevant Family History (Specify if Yes): No Relevant Social History: None Present Medications: see Short Stay Collaborative assessment Medical History: Significant History (Anemia, hyperlipidemia, hypertension, janna min-D deficiency) History of Previous Operations: Relevant previous surgery/procedure and date(s) (History of cholecystectomy) Allergies: Allergies Allergy/AdvReac Type Severity Reaction Status Date / Time No Known Allergies Allergy Verified 04/13/24 09:25 Review of Systems Sugical H&P ROS: Negative: Constitution, Cardiovascular, Respiratory and Gastrointestinal Exam Surgical H&P Exam: Normal: Heart, Normal: Lungs, Normal: Extremities and Normal: Abdomen Plan Diagnosis/Plan: Unchanged I have reviewed the history and physical and performed a pertinent physical examination on my patient. No changes have occurred unless specified. Time Spent With Patient Time: Total time managing care of this patient today ____ minutes.
[2024-10-12 11:13] VITALS: BMI 25.3
[2024-10-12] MEDS: Lactated Ringers 1,000 ML 100 ML IVCONT (11:20)
[2024-10-12 11:27] VITALS: BP 141/89; PULSE 98; RESP 18; TEMP 36.6; O2SAT 96
--- NOTE | 2024-10-12 12:01 | P.CONAN_ITS ---
Documented by User: Arleen Cali MD 10/12/24 12:20 [facility] Past Medical History Medical History Hyperlipidemia Anemia HTN (hypertension) Vitamin D deficiency Family History Family History Mother Non-insulin dependent type 2 diabetes mellitus Surgical History Surgical History History of cholecystectomy Social History Social History Housing: [facility] Are you a primary resident care aid to a significant other at home: No Do you presently have visiting nurse or other home services: No Alcohol intake: never Patient Tobacco Use Status: Never used Tobacco e-Cigarette/Vaping Use: Never Used Have you been hit, kicked, punched, or otherwise hurt by someone within the past year? 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[employer] Cognitive needs: No Hearing needs: No Vision needs: No Meds Allergies Allergy/AdvReac Type Severity Reaction Status Date / Time No Known Allergies Allergy Verified 10/12/24 11:16 Exam Airway Mallampati Class: II TM Dist: >3cm Neck ROM: Full Heart: rrr Lungs: cta Assessment and Plan Assessment Anesthesia Assessment: Anesthesia Plan Discussed and Chart Reviewed Final Anesthetic Review NPO: Yes ASA Class: II Final Preanesthetic Review: No Changes in Pt Med Stat, Meds/Allgs Chart Reviewed and Consent Obtained/Reviewed Patient Risk: Low Procedure Risk: Intermediate Anesthetic Plan Anesthetic Plan: MAC: Disposition: Standard PACU Documented by User: Cande Schuler MD [facility] Active Problems Active Problems: All Active Problems Anemia (Acute) Hyperlipidemia (Acute) Encounter for routine adult physical exam with abnormal findings (Acute) Hypertension (Acute) Post covid-19 condition, unspecified (Acute) Paronychia of finger of left hand (Acute) Vitamin D deficiency (Acute) Past Medical History Medical History Hyperlipidemia Anemia HTN (hypertension) Vitamin D deficiency Family History Family History Mother Non-insulin dependent type 2 diabetes mellitus Family history of problems with anesthesia: No Surgical History Surgical History History of cholecystectomy History of Problems with Anesthesia: No Social History Social History Housing: [facility] Are you a primary resident care aid to a significant other at home: No Do you presently have visiting nurse or other home services: No Alcohol intake: never Patient Tobacco Use Status: Never used Tobacco e-Cigarette/Vaping Use: Never Used Have you been hit, kicked, punched, or otherwise hurt by someone within the past year? 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[employer] Cognitive needs: No Hearing needs: No Vision needs: No Meds Allergies Allergy/AdvReac Type Severity Reaction Status Date / Time No Known Allergies Allergy Verified 10/12/24 11:16 Active Medications: Current Medications Lactated Ringer's (Lr) 1,000 mls @ 100 mls/hr IVCONT .Q10H WALDO Last Admin: 10/12/24 11:20 Dose: 100 mls/hr Naloxone HCl (Naloxone Hcl 0.4 Mg/Ml Vial) 0.04 mg IVPUSH Q5M PRN PRN Reason: Excessive sedation or RR < 8 Exam Height,Weight and Vital Signs: Height 5 ft 1 in Weight 60.781 kg Last Vital Signs Temp 97.9 F 10/12/24 11:27 Pulse 98 10/12/24 11:27 Resp 18 10/12/24 11:27 BP 141/89 H 10/12/24 11:27 Pulse Ox 96 10/12/24 11:27 O2 Del Method Room Air 10/12/24 11:27 Assessment and Plan Final Anesthetic Review Family History of Problems with Anesthesia: No History of Problems with Anesthesia: No
--- NOTE | 2024-10-12 13:02 | P.OPN-COLO_ITS ---
Colonoscopy Operative Note Operative Note Date of Service: 10/12/24 Narrative: COLONOSCOPY TILL CECUM WITH BIOPSES Pre-op diagnosis: Colon cancer screening (1st colon). Post-op diagnosis:? Diverticulosis, hemorrhoids Endoscopist:? Lora Kramer MD Anesthesia:?MAC Consent: Indications for the procedure and potential complications of bleeding, perforation, reaction to medications and missed diagnosis were discussed with the patient and informed consent was obtained. Instrument: Olympus PCF H 190 L variable stiffness pediatric colonoscope Monitoring: Vital signs and clinical assessment, intermittent blood pressure monitoring, continuous EKG monitoring, Pulse oximetry and Carbon Dioxide monitoring were done throughout the procedure. Please see anesthesia flowsheet. Colon withdrawl time was 12 minutes. Procedure: The patient was placed in the left lateral decubitis position and pre-procedure medications were administered. After a digital rectal examination of the ano-rectum, the video colonoscope was inserted into the rectum and advanced through the colon to the ICV. It was not possible to advance further due to spasm and excessive looping of the colonoscope. The cecum was partially visualized across the ileocecal valve and appeared normal. The colonoscope was slowly withdrawn in a retrograde panoramic fashion and the colon mucosa was carefully examined including a retroflexed view of the rectum. Findings and interventions are described below. Procedure Difficulty: Colon was long and tortuous and there was spasm and recurrent loop formation. Patient was placed in the supine position and LLQ pressure was applied to intubate the cecum Findings: Terminal Ileum: Not evaluated Cecum: Partially evaluated across the ICV and appeared normal Prominent ICV - biopsies were obtained to rule out adenomatous change Ascending Colon: Mild melanosis coli throughout the entire colon - biopsies were obtained from the right colon Transverse Colon: Mild melanosis coli throughout the entire colon Descending Colon: Mild melanosis coli throughout the entire colon Sigmoid Colon: Mild melanosis coli throughout the entire colon. Moderate diverticulosis Rectum: Normal Ano-rectum: Moderate internal hemorrhoids Colon preparation: Good after copious irrigation. [place] Bowel Preparation Scale Right colon; 2 Transverse colon: 2 Left colon; 2 (0 = Unprepared colon segment with mucosa not seen due to solid stool that cannot be cleared. 1 = Portion of mucosa of the colon segment seen, but other areas of the colon segment not well seen due to staining, residual stool and/or opaque liquid. 2 = Minor amount of residual staining, small fragments of stool and/or opaque liquid, but mucosa of colon segment seen well. 3 = Entire mucosa of colon segment seen well with no residual staining, small fragments of stool or opaque liquid) Impression and Post Procedure Diagnosis: Colonoscopy Findings: No polyps were detected Prominent ICV - biopsies were obtained to rule out adenomatous change Moderate diverticulosis seen in the sigmoid colon Moderate hemorrhoids on retroflexed exam. Plan: Pt has a FU appointment on 10/26/24 with Lashell Parisi NP If biopsies from the ileocecal valve shows adenomatous tissue, repeat colonoscopy in 6 months for polypectomy. Repeat Colonoscopy in 10 year if ICV biopsies are normal. (adult colonoscope and Duloclax 10 mg daily x 5 days for future colon) Above findings were reviewed with the patient and relevant handouts were given and the discharge area.
[2024-10-12 13:07] VITALS: BP 112/68; PULSE 77; RESP 16; TEMP 36.2; O2SAT 100
[2024-10-12 13:22] VITALS: BP 119/71; PULSE 103; RESP 16; TEMP 36.2; O2SAT 99
== END 2024-10-12 13:36 | disposition home or self-care (01) ==
PROVIDERS: Visit Provider Internal Medicine Gastroenterology
PROC: 0DJD8ZZ Inspection of Lower Intestinal Tract, Via Natural or Artificial Opening Endoscopic (ICD-10-PCS; CPT 45378; principal; 2024-10-12 12:40)
DX: Z12.11 Encounter for screening for malignant neoplasm of colon (principal); K63.89 Other specified diseases of intestine; K57.30 Diverticulosis of large intestine without perforation or abscess without bleeding; K64.8 Other hemorrhoids; D64.9 Anemia, unspecified; E78.5 Hyperlipidemia, unspecified; I10 Essential (primary) hypertension; E55.9 Vitamin D deficiency, unspecified; Z79.899 Other long term (current) drug therapy; Z90.49 Acquired absence of other specified parts of digestive tract
CPT/HCPCS: 45380; 88305; J2003; J2704

== ENCOUNTER → 2024-10-12 10:53 | Outpatient (BNV) | payer BC, SELFPAY | PROVIDERS: Visit Provider Internal Medicine Gastroenterology | DX: Z12.11 Encounter for screening for malignant neoplasm of colon (principal); K63.89 Other specified diseases of intestine; K57.30 Diverticulosis of large intestine without perforation or abscess without bleeding; K64.8 Other hemorrhoids | CPT/HCPCS: 45380 ==

== ENCOUNTER 2025-02-11 09:50 | Outpatient (AMB) | payer BC, SELFPAY ==
[2025-02-11 10:00] VITALS: BP 138/80; PULSE 93; RESP 16; TEMP 36.7; O2SAT 99; BMI 26.3
--- NOTE | 2025-02-11 10:00 | MHC.PC.OV ---
Vital Signs 02/11/25 10:00 Height 5 ft 1 in Weight 139 lb BMI 26.3 BP 138/80 Blood Pressure Location Lt brachial Position Sitting Respiration 16 Pulse 93 Pulse Source Pulse Oximeter Temp 98.0 F Pulse Oximetry (%) 99 Oxygen Delivery Method Room Air Intake Visit Reasons: Lt eye cataract surgery Dr. Espinoza 02/24/25 Intake Note: Pt is here today for her pre-op Lt eye cataract surgery with Dr. Espinoza on 02/24 Allergies No Known Allergies Allergy (Verified 02/11/25 10:28) Medication List - Last Reconciled 02/11/25 by Simi Fisher MD amlodipine 10 mg PO DAILY Tobacco use date assessed: 02/11/25 Dental Screening Dental Screen Date: 02/11/25 Did you have a dental visit in the last 12 months?: No Did you have a dental problem in the last 6 months where you did not have access to dental care?: No Was dental information given to patient?: Yes HPI Lt eye cataract surgery Dr. Espinoza 02/24/25 HPI Details 60-year-old lady with history of iron-deficiency anemia, hypertension, and hyperlipidemia, here today for a preoperative exam for cataract surgery on left eye, requested by Dr. Espinoza scheduled for 02/24/2025. Patient has been taking her medicines as directed, blood pressure is better controlled on amlodipine 10 mg daily which he takes at night. She has been eating a lot of green leafy vegetables, unable to tolerate iron supplements for treatment of her iron-deficiency anemia. Denies any chest pain, no lightheadedness, no shortness of breath or palpitations.. PFSH Medical History (Updated 02/11/25 @ 10:42 by Simi Fisher MD) Hyperlipidemia Anemia HTN (hypertension) Vitamin D deficiency Surgical History (Updated 02/11/25 @ 10:42 by Simi Fisher MD) Hx laparoscopic cholecystectomy Family History Mother Non-insulin dependent type 2 diabetes mellitus Social History Housing: Condominium Are you a primary geriatric care manager to a significant other at home: No Do you presently have visiting nurse or other home services: No Alcohol intake: never Patient Tobacco Use Status: Never used Tobacco e-Cigarette/Vaping Use: Never Used service: No Current occupational status: employed 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 1. Little interest or pleasure in doing things: not at all 2. Feeling down, depressed, or hopeless: not at all 3. Trouble falling or staying asleep, or sleeping too much: not at all 4. Feeling tired or having little energy: not at all 5. Poor appetite or overeating: not at all 6. Feeling bad about yourself - or that you are a failure or have let yourself or your family down: not at all 7. Trouble concentrating on things, such as reading the newspaper or watching television: not at all 8. Moving or speaking so slowly that other people could have noticed. Or the opposite - being so fidgety or restless that you have been moving around a lot more than usual: not at all 9. Thoughts that you would be better off or of hurting yourself in some way: not at all Total score: 0 Depression Screening Interpretation: Negative Depression Screening Done: Yes 47417 - PHQ-9 Billing: Yes Source: Developed by Drs. Musa Ch, Nicolasa Back, Abdias Nunez and colleagues, with an educational bakrai from [employer]. Thrive Questionnaire Date Thrive assessed: 02/11/25 I am a: Patient What is your living situation today?: I have a steady place to live Within the past 12 months, did the food you bought not last and you didn't have the money to get more?: Never true Within the past 12 months, did you worry whether your food would run out before you got money to buy more?: Never true Do you have trouble paying for medicines?: No Do you have trouble getting transportation to medical appointments?: No Do you have trouble paying your heating and electricity bill?: No Do you have trouble taking care of your child, family member or friend?: No Do you have trouble with day-to-day activities such as bathing, preparing meals, shopping, managing finances, etc.?: No Are you currently unemployed and looking for a job?: No Are you interested in more education?: No Please select the resources that you would like help with: None Currently or been in a relationship where the following occur: No concerns reported THRIVE Score: 0 AUDIT C Alcohol Use Questionnaire (AUDIT-C) 1. How often do you have a drink containing alcohol?: Never Total Score: 0 WONG-7 AMB Questionnaire WONG-7 Date WONG - 7 assessed: 02/11/25 Feeling nervous, anxious, or on edge: 0 = Not at all Not being able to stop or control worryin = Not at all Worrying too much about different things: 0 = Not at all Trouble relaxin = Not at all Being so restless that it is hard to sit still: 0 = Not at all Becoming easily annoyed or irritable: 0 = Not at all Feeling afraid as if something awful might happen: 0 = Not at all Total WONG-7 score (0-4 normal; 5-9 mild; 10-14 moderate; 15-21 severe): 0 Source: Developed by Drs. Musa Ch, Nicolasa Back, Abdias Nunez and colleagues, with an educational bakari from [employer]. WONG-7 Assessment Billing WONG-7 Assessment Tool: WONG-7 Assessment 96920 Review of Systems Const Denies body aches, Denies fatigue, Denies headache(s) and Denies lethargy Eyes Reports blurry vision (Left eye due to cataract) ENT Reports no additional complaints and Denies headache(s) Card Reports no additional complaints Resp Reports no additional complaints GI Denies abdominal pain, Denies belching, Denies melena, Denies bloating, Denies change in bowel habits, Denies excessive flatus and Denies heartburn Reports no additional complaints Musc Reports no additional complaints Neuro Reports no additional complaints and Denies headache(s) Psych Reports no additional complaints Endo Reports no additional complaints and Denies fatigue Vicente/Lymph Reports no additional complaints Aller/Immun Reports no additional complaints Physical exam (Primary Care) Vital Signs: Last Vital Signs Temp 98.0 F 02/11/25 10:00 Pulse 93 02/11/25 10:00 Resp 16 02/11/25 10:00 BP 138/80 02/11/25 10:00 Pulse Ox 99 02/11/25 10:00 Oxygen Delivery Method Room Air 02/11/25 10:00 BMI result Body Mass Index 26.3 Tobacco/Smoking Status: Tobacco use Status Tobacco use date assessed 02/11/25 02/11/25 10:05 Patient Tobacco Use Status Never used Tobacco 02/11/25 10:05 e-Cigarette/Vaping Use Never Used 02/11/25 10:05 PHQ-9: PHQ-9 Score PHQ-9: Total score 0 02/11/25 10:29 Depression Screening Interpretation: Negative Thrive Assessment: Date of Thrive Assessment Date Thrive assessed 02/11/25 02/11/25 10:11 Currently or been in a relationship where the following occur: No concerns reported Const General: comfortable, no acute distress and alert Orientation/consciousness: patient oriented x3 HENMT Ears: external ears normal General nose exam: Normal external nose present Mouth: Normal oral and palatal mucosa present and moist mucous membranes Eyes General: appearance normal, both eyes and all related structures Conjunctivae: conjunctivae normal Sclerae: sclerae normal Pupils: Equal, round and reactive pupils present EOM: EOMs intact bilaterally Neck Neck: Yes full ROM, Yes no lymphadenopathy and Yes supple Resp Effort & Inspection: normal respiratory effort and able to speak in complete sentences Auscultation: clear to auscultation bilaterally Cardio Rate: regular rate Rhythm: regular rhythm Heart sounds: S1 normal heart sound present and S2 normal heart sound present GI Palpation (GI): Soft to palpation, nontender and no masses Auscultation: normal bowel sounds Back/Spine/Pelvis Back: No back tenderness Skin General skin exam: no rashes or lesions noted Neuro General: patient oriented x3, gait normal, tone normal, moves all extremities, Normal light touch and pain sensation and no focal motor deficits Cranial nerves: Yes CN's II-XII intact bilaterally and Yes Equal, round and reactive pupils present Cognition (Neuro): normal cognition Extrem General: Yes full ROM, Yes no joint enlargement, Yes no clubbing, cyanosis or edema and Yes no calf tenderness Psych Appearance: grossly normal and well kempt Mental Status: mental status grossly normal Speech and movement: Normal speech and movement present Affect: normal affect Attitude: cooperative Thought process: Normal thought process present Thought content: Normal thought content present, suicidality and no homicidality Coding Level of Care Code Est Pt Level 4 (30066) Diagnoses Encounter for pre-operative examination Z01.818 Primary hypertension I10 Hypertension type: primary hypertension Hyperlipidemia, unspecified hyperlipidemia type E78.5 Hyperlipidemia type: unspecified Anemia, unspecified type D64.9 Anemia type: unspecified type Vitamin D deficiency E55.9 Additional Codes PHQ-9 - 40258 - PHQ-9 Billing: Yes ([id number]) WONG-7 Assessment Billing - WONG-7 Assessment Tool: WONG-7 Assessment 92311 ([id number]) Assessment & Plan Assessment & Plan (1) Encounter for pre-operative examination: Code(s): Z01.818 - Encounter for other preprocedural examination Plan: 60-year-old lady with hypertension, iron-deficiency anemia and dyslipidemia, here today for preoperative exam for left cataract surgery scheduled for 02/24/2025, requested by Dr. Espinoza. Patient with no known coronary artery or pulmonary disease preoperative exam was unremarkable. She has a low cardiac risk index for proposed surgery (2) Hypertension: Comment: Will refill amlodipine. Patient will continue to record blood pressure values at home. Code(s): I10 - Essential (primary) hypertension Category: Medical Qualifiers: Hypertension type: primary hypertension Qualified Code(s): I10 - Essential (primary) hypertension Plan: Continue with amlodipine 10 mg at night. Reinforced importance of following a low-salt diet and getting regular exercise. Fasting labs ordered to check basic metabolic panel and fasting lipids. (3) Hyperlipidemia: Comment: Patient declines statin therapy at this time. Would like to try to lower lipid level with diet and exercise. Will continue to monitor. Code(s): E78.5 - Hyperlipidemia, unspecified Category: Medical Qualifiers: Hyperlipidemia type: unspecified Qualified Code(s): E78.5 - Hyperlipidemia, unspecified Plan: Reinforced importance of adhering to a low-cholesterol diet and getting regular exercise at least 30 minutes of cardio on a daily basis. Fasting lipids ordered to be done prior to her appointment for physical in June (4) Anemia: Comment: Patient would like to increase dietary iron. Will draw CBC today. Patient has been educated on signs of worsening symptoms and when to report back to the office or when to present to the emergency room. Code(s): D64.9 - Anemia, unspecified Category: Medical Qualifiers: Anemia type: unspecified type Qualified Code(s): D64.9 - Anemia, unspecified Plan: Continue with eating green leafy vegetables, and increasing other sources of dietary iron. Ordered repeat CBC and iron profile (5) Vitamin D deficiency: Comment: Patient has been taking 25245 units vitamin D3 per week. Will redraw today. Code(s): E55.9 - Vitamin D deficiency, unspecified Category: Medical Plan: Will check vitamin-D level, advised to continue taking dhdv-kmy-jvvsndb vitamin-D 3 at 2000 units daily Orders: Orders Basic Metabolic Panel Fasting 05/26/25 D64.9 - Anemia, unspecified, E55.9 - Vitamin D deficiency, unspecified, E78.5 - Hyperlipidemia, unspecified, I10 - Essential (primary) hypertension, Z01.818 - Encounter for other preprocedural examination Lipid Panel 05/26/25 D64.9 - Anemia, unspecified, E55.9 - Vitamin D deficiency, unspecified, E78.5 - Hyperlipidemia, unspecified, I10 - Essential (primary) hypertension, Z01.818 - Encounter for other preprocedural examination Alanine Aminotransferase 05/26/25 D64.9 - Anemia, unspecified, E55.9 - Vitamin D deficiency, unspecified, E78.5 - Hyperlipidemia, unspecified, I10 - Essential (primary) hypertension, Z01.818 - Encounter for other preprocedural examination Aspartate Amino Transferase 05/26/25 D64.9 - Anemia, unspecified, E55.9 - Vitamin D deficiency, unspecified, E78.5 - Hyperlipidemia, unspecified, I10 - Essential (primary) hypertension, Z01.818 - Encounter for other preprocedural examination IRON PROFILE 05/26/25 D64.9 - Anemia, unspecified, E55.9 - Vitamin D deficiency, unspecified, E78.5 - Hyperlipidemia, unspecified, I10 - Essential (primary) hypertension, Z01.818 - Encounter for other preprocedural examination Complete Blood Count Auto Diff 05/26/25 D64.9 - Anemia, unspecified, E55.9 - Vitamin D deficiency, unspecified, E78.5 - Hyperlipidemia, unspecified, I10 - Essential (primary) hypertension, Z01.818 - Encounter for other preprocedural examination Vitamin D 25-OH Total 06/25/25 D64.9 - Anemia, unspecified, E55.9 - Vitamin D deficiency, unspecified, E78.5 - Hyperlipidemia, unspecified, I10 - Essential (primary) hypertension, Z01.818 - Encounter for other preprocedural examination
--- OUTSIDE RECORDS SUMMARY | 2025-02-11 12:01 | XMS_ITS | Clinical Summary ---
Author Organization [facility] it Address [address] [place] [address] Care Team Providers Care Career Coordinator Name Role Phone Noah Montoya MD Primary Care Provider [phone] Surgical History Surgery Date Site/Laterality Comments CHOLECYSTECTOMY 2007 PROCEDURE: HISTORICAL CHOLECYSTECTOMY CERVICAL BIOPSY W/ LOOP ELECTRODE EXCISION 2001 PROCEDURE: [place] CONIZATION CERVIX W/WO D&C RPR ELTRD EXC Medical History Medical History Date Comments Positive PPD 01/13/2015 DX:Positive PPD; COMMENT: H/o BCG injection Historical Medical DX 01/13/2015 DX:Abnorma l Pap smear; COMMENT: LEEP 2001 Family History Medical History Relation Name Comments Other: accidental Father Hypertension Mother Breast cancer Neg Hx Colon cancer Neg Hx Ovarian cancer Neg Hx Relation Name Status Comments Father accident, Mother Alive dm, htn, Social History Tobacco Use Types Packs/Day Years Used Date Smoking Tobacco: Never Smokeless Tobacco: Never Alcohol Use Standard Drinks/Week Comments No 0 (1 standard drink = 0.6 oz pur e alcohol) Comments Unknown Sex and Gender Information Value Date Recorded Sex Assigned at Not on file Legal Sex Female 1:14 AM EST Gender Identity Not on file Sexual Orientation Not on file Obstetrics History Plan of Treatment Upcoming Encounters Date Type Department Care Team (Late st Contact Info) Description 07/03/2025 9:00 AM EDT Appointment Radiology Department [address] [phone] Health Maintenance Due Date Last Done Comments Hepatitis B Vaccines (1 of 3 - 19+ 3-dose series) 1986 Cervical Cancer Screening: Pap Smear 1988 Pneumococcal Vaccine: 50+ Years (1 of 1 - PCV) 2017 Zoster Vaccines (1 of 2) 2017 07/21/2004, 05/03 DTaP,Tdap,and Td Vaccines (3 - Td or Tdap) 08/21/2020 08/21/2010, 04/14/2004 Colorectal Cancer Screening: Colonoscopy 11/10/2022 Depression Screening 11/10/2022 HIV Screening 11/10/2022 Hepatitis C Screening 11/10/2022 Social Influencers of Health Screening 11/10/2022 COVID-19 Vaccine ( season) 2024 Influenza Vaccine (#1) 2024 09/10/2019, 2016 Breast Cancer Screening 06/13/2026 06/13/20, 06/13/2024, 05/04/2023, Additional history exists MMR Vaccines Aged Out 06/22/2004, 05/23/2004 No lo nger eligible based on patient's age to complete this topic Varicella Vaccines Aged Out 07/21/2004, 05/23/2004 No longer eligible based on patient's age to complete this topic HIB Vaccines Aged Out No longer eligi ble based on patient's age to complete this topic HPV Vaccines Aged Out No longer eligi ble based on patient's age to complete this topic Hepatitis A Vaccines Aged Out No long er eligible based on patient's age to complete this topic IPV Vaccines Aged Out No longer eligi ble based on patient's age to complete this topic Meningococcal ACWY Vaccine Aged Out N o longer eligible based on patient's age to complete this topic Meningococcal B Vacine Aged Out No lo nger eligible based on patient's age to complete this topic Pneumococcal Vaccine: Pediatrics (0 to 5 Years) and At-Risk Patients (6 to 64 Years) Aged Out No longer eligible based on patient's age to complete this topic RSV Immunization Patients Under 20 months Aged Out No longer eligible based on patient's age to complete this topic Procedures Procedure Name Priority Date/Time Associated Diagnosis Comments SCREENING MAMMOGRAPHY BI 2-VIEW BREAST INC CAD Routine 06/13/2024 9:19 AM EDT Encounter for screening mammogram for malignant neoplasm of breast from Last 3 Months or Most Recently Relevant to Health Maintenance Results * SCREENING MAMMOGRAPHY BI 2-VIEW BREAST INC CAD (06/13/2024 9:19 AM EDT) Anatomical Region Laterality Modality Radiographic Court ging 05/04/2023 9:05 AM EDT Narrative 06/15/2024 12:31 PM EDT This is a summary report. The complete report is available in the patient's medical record. If you cannot access the medical record, please contact the sending organization for a detailed fax or copy. Full field digital screening 2D C views and 3D tomosynthesis mammography, reviewed with CAD and compared to previous. The breast tissue is heterogeneously dense, limiting sensitivity. No suspicious mass, architectural distortion or suspicious calcifications are identified. IMPRESSION: : Dense breast tissue, limiting the sensitivity of mammography. No mammographic evidence of malignancy. BIRADS 1-Negative; N. 5 year breast cancer risk assessment 1.3 % Lifetime breast cancer risk assessment 8.0 % Breast cancer risk category Low (<15%) Procedure Note Nova Alavrez MD - 10/26/2024 This is a summary report. The complete report is available in thepatient's medical record. If you cannot access the medical record, pleasecontact the sending organization for a detailed fax or copy. Full field digital screening 2D C views and 3D tomosynthesis mammography,reviewed with CAD and compared to previous. The breast tissue isheterogeneously dense, limiting sensitivity. No suspicious mass,architectural distortion or suspicious calcifications are identified. IMPRESSION: : Dense breast tissue, limiting the sensitivity of mammography. Nomammographic evidence of malignancy. BIRADS 1-Negative; N. 5 year breast cancer risk assessment 1.3 % Lifetime breast cancer risk assessment 8.0 % Breast cancer risk category Low (<15%) Keri Parish CNM IMG XR PROCEDURES Final Resul t from Last 3 Months or Most Recently Relevant to Health Maintenance Care Teams Career Coordinator Relationship Specialty Start Date End Date Noah Montoya MD [address] [place] [address] PCP - General Internal Medicine 10/12/14
== END 2025-02-11 10:40 | disposition home or self-care (01) ==
LOC: HO.HMCC 09:51
PROVIDERS: Visit Provider Internal Medicine
DX: Z01.818 Encounter for other preprocedural examination (principal); I10 Essential (primary) hypertension; E78.5 Hyperlipidemia, unspecified; D64.9 Anemia, unspecified; E55.9 Vitamin D deficiency, unspecified

== ENCOUNTER → 2025-02-11 09:50 | Outpatient (BNVA) | payer BC, SELFPAY | PROVIDERS: Visit Provider Internal Medicine | DX: Z01.818 Encounter for other preprocedural examination (principal); H26.9 Unspecified cataract; I10 Essential (primary) hypertension; E78.5 Hyperlipidemia, unspecified; D64.9 Anemia, unspecified; E55.9 Vitamin D deficiency, unspecified; Z79.899 Other long term (current) drug therapy | CPT/HCPCS: 96127 ==

== ENCOUNTER 2025-06-08 07:19 | Outpatient (REF) | payer BC, SELFPAY ==
[2025-06-08 11:03] LABS: MANUAL DIFF FLAG NO
[2025-06-08 11:04] LABS: Hematocrit 34.3 % (37.0-47.0); Hemoglobin 10.5 g/dl (12.0-16.0); Imm Gran Abs Auto 0.03 X10*3/uL (0.00-0.03); Imm Gran Pct Auto 0.4 % (0.0-0.4); Lymphocytes Absolute Auto 2.9 X10*3/uL (1.2-4.9); Mean Corpuscular HGB Conc 30.6 g/dl (31.0-35.0); Mean Corpuscular Hemoglobin 22.1 pg (27.0-33.0); Mean Corpuscular Volume 72.2 fL (80.0-98.0); NRBC Abs Auto 0.000 X10*3/uL (0.0-0.012); NRBC Pct Auto 0.0 /100WBC (0.0-0.2); Platelet Count 368 X10*3/uL (160-400); Red Blood Count 4.75 X10*6/uL (4.20-5.50); White Blood Count 7.6 X10*3/uL (4.8-10.8)
[2025-06-08 11:46] LABS: Alanine Aminotransferase 25 U/L (0-31); Anion Gap 9 (12-20); Aspartate Amino Transferase 27 U/L (5-31); Blood Urea Nitrogen 6 mg/dL (9-16); Calcium 9.8 mg/dL (8.4-10.2); Carbon Dioxide 27 mmol/L (22-29); Chloride 105 mmol/L (96-108); Cholesterol 199 mg/dL (<200); Estimated Glomerular Filt Rate > 60; HDL Cholesterol 39 mg/dL (>40); Iron 27 mcg/dL (30-160); Percent Iron Saturation 8 % (15-50); Potassium 4.0 mmol/L (3.3-5.1); Sodium 137 mmol/L (135-145); Total Iron Binding Capacity 346 mcg/dL (228-428); Triglycerides 287 mg/dL (<150); Unsaturated Iron Binding 319 ug/dL
== END 2025-06-08 07:20 | disposition home or self-care (01) ==
LOC: HO.HMGCLDS 07:19
PROVIDERS: PCP Internal Medicine; Visit Provider Internal Medicine
DX: Z01.818 Encounter for other preprocedural examination (principal); D64.9 Anemia, unspecified; E78.5 Hyperlipidemia, unspecified; I10 Essential (primary) hypertension; E55.9 Vitamin D deficiency, unspecified
CPT/HCPCS: 36415; 80048; 80061; 82306; 83540; 84450; 84460; 85025

== ENCOUNTER 2025-06-09 09:34 | Outpatient (AMB) | payer BC, SELFPAY ==
--- NOTE | 2025-06-09 09:56 | A.OFFPC_ITS ---
Vital Signs 06/09/25 09:58 Height 5 ft 1 in Weight 142 lb BMI 26.8 BP 144/84 H Blood Pressure Location Lt brachial Position Sitting Respiration 15 Pulse 98 Pulse Source Pulse Oximeter Temp 98.2 F Temp Source Oral Pulse Oximetry (%) 98 Oxygen Delivery Method Room Air Comment Did not take amlodipine today Intake Visit Reasons: PE PER AE Intake Note: Pt is here today for her PE: last mammogram 06/13/24, papsmear 01/10/24, colonoscopy 10/12/24 Allergies No Known Allergies Allergy (Verified 06/09/25 10:21) Medication List - Last Reconciled 06/09/25 by Simi Fisher MD amlodipine 10 mg PO DAILY Tobacco use date assessed: 06/09/25 Dental Screening Dental Screen Date: 06/09/25 Did you have a dental visit in the last 12 months?: No Did you have a dental problem in the last 6 months where you did not have access to dental care?: No Was dental information given to patient?: Patient has dentist HPI PE PER AE HPI Details 60-year-old lady with hypertension, here today for follow-up. She has been taking amlodipine 10 mg daily, but does not want to continue taking it as she has been noticing swelling in both legs towards the end of the day, which resolves when she raises and elevates her legs.. She also has not yet taken her blood pressure medicines this morning blood pressure was slightly elevated, denies any accompanying headache, no chest pain or palpitations, shortness of breath. Had recent fasting labs done which showed elevated fasting glucose at 202 mg/dL, elevated triglycerides and lower LDL cholesterol as compared to last check. She also has anemia worse than last check. Patient is a vegetarian, only eats vegetables and fruits. [facility] Medical History (Updated 06/09/25 @ 10:49 by Simi Fisher MD) History of vitamin D deficiency Diabetes mellitus due to underlying condition, uncontrolled, with hyperglycemia, without long-term current use of insulin Hyperlipidemia Anemia HTN (hypertension) Vitamin D deficiency Surgical History Hx laparoscopic cholecystectomy Family History Mother Non-insulin dependent type 2 diabetes mellitus Social History Housing: Condominium Are you a primary child care center administrator to a significant other at home: No Do you presently have visiting nurse or other home services: No Alcohol intake: never Patient Tobacco Use Status: Never used Tobacco e-Cigarette/Vaping Use: Never Used service: No Current occupational status: employed 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[employer] Cognitive needs: No Hearing needs: No Vision needs: Yes Questionnaire Thrive Questionnaire Date Thrive assessed: 02/11/25 I am a: Patient What is your living situation today?: I have a steady place to live Within the past 12 months, did the food you bought not last and you didn't have the money to get more?: Never true Within the past 12 months, did you worry whether your food would run out before you got money to buy more?: Never true Do you have trouble paying for medicines?: No Do you have trouble getting transportation to medical appointments?: No Do you have trouble paying your heating and electricity bill?: No Do you have trouble taking care of your child, family member or friend?: No Do you have trouble with day-to-day activities such as bathing, preparing meals, shopping, managing finances, etc.?: No Are you currently unemployed and looking for a job?: No Are you interested in more education?: No Please select the resources that you would like help with: None Currently or been in a relationship where the following occur: No concerns reported THRIVE Score: 0 WONG-7 AMB Questionnaire WONG-7 Date WONG - 7 assessed: 02/11/25 Source: Developed by Drs. Musa Ch, Nicolasa Back, Abdias Nunez and colleagues, with an educational bakari from [employer]. Review of Systems Const Denies body aches, Denies fatigue, Denies headache(s) and Denies lethargy Eyes Details: Goes to [facility], up-to-date with her eye exam, no retinopathy seen Reports blurry vision (Left eye due to cataract) ENT Reports no additional complaints and Denies headache(s) Card Reports no additional complaints Resp Reports no additional complaints GI Denies abdominal pain, Denies belching, Denies melena, Denies bloating, Denies change in bowel habits, Denies excessive flatus and Denies heartburn Reports no additional complaints Musc Reports no additional complaints Skin/Breast Denies breast pain, Denies breast mass and Denies rash Neuro Reports no additional complaints and Denies headache(s) Psych Reports no additional complaints Endo Denies fatigue, Denies polyphagia, Denies polydipsia and Denies polyuria Vicente/Lymph Reports no additional complaints Aller/Immun Reports no additional complaints Physical exam (Primary Care) Vital Signs: Last Vital Signs Temp 98.2 F 06/09/25 09:58 Pulse 98 06/09/25 09:58 Resp 15 06/09/25 09:58 BP 144/84 H 06/09/25 09:58 Pulse Ox 98 06/09/25 09:58 Oxygen Delivery Method Room Air 06/09/25 09:58 BMI result Body Mass Index 26.8 Tobacco/Smoking Status: Tobacco use Status Tobacco use date assessed 06/09/25 06/09/25 10:04 Patient Tobacco Use Status Never used Tobacco 06/09/25 09:58 e-Cigarette/Vaping Use Never Used 06/09/25 09:58 Thrive Assessment: Date of Thrive Assessment Date Thrive assessed 02/11/25 06/09/25 09:58 Currently or been in a relationship where the following occur: No concerns reported Const General: comfortable, no acute distress and alert Orientation/consciousness: patient oriented x3 HENMT Ears: external ears normal General nose exam: Normal external nose present Mouth: Normal oral and palatal mucosa present and moist mucous membranes Eyes General: appearance normal, both eyes and all related structures Conjunctivae: conjunctivae normal Sclerae: sclerae normal Pupils: Equal, round and reactive pupils present EOM: EOMs intact bilaterally Neck Neck: Yes full ROM, Yes no lymphadenopathy and Yes supple Resp Effort & Inspection: normal respiratory effort and able to speak in complete sentences Auscultation: clear to auscultation bilaterally Cardio Rate: regular rate Rhythm: regular rhythm Heart sounds: S1 normal heart sound present and S2 normal heart sound present GI Palpation (GI): Soft to palpation, nontender and no masses Auscultation: normal bowel sounds Back/Spine/Pelvis Back: No back tenderness Skin General skin exam: no rashes or lesions noted Neuro General: patient oriented x3, gait normal, tone normal, moves all extremities, Normal light touch and pain sensation and no focal motor deficits Cranial nerves: Yes CN's II-XII intact bilaterally and Yes Equal, round and reactive pupils present Cognition (Neuro): normal cognition Extrem General: Yes full ROM, Yes no joint enlargement, Yes no clubbing, cyanosis or edema and Yes no calf tenderness Psych Appearance: grossly normal and well kempt Mental Status: mental status grossly normal Speech and movement: Normal speech and movement present Affect: normal affect Attitude: cooperative Thought process: Normal thought process present Thought content: Normal thought content present Results AMB Hemoglobin A1c AMB Hemoglobin A1c 10.3 % Last Edit by Zora Angelo CMA on 06/09/25 10:36 Results Reviewed Results Reviewed: Laboratory Last Values Hgb A1c (Clinic) 10.3 % (4.0-6.0) H 06/09/25 10:26 Name: Rosa Brush Age/Sex: 60/F : 1965 Unit#: [id number] Attend Dr: Simi Fisher MD Re06/08/25 Status: DEP REF Location: [facility] Disch: SPEC : [id number] ALESSANDRO: 06/08/25 STATUS: COMP REQ : [id number] RECD: 06/08/[address]: Simi Fisher MD COMP: 06/08/25 ENTERED: 06/08/[address] [facility] [address]: ORDERED: CBC Auto Diff Test Result Flag Reference WBC 7.6 4.8-10.8 X10*3/uL RBC 4.75 4.20-5.50 X10*6/uL HGB 10.5 L 12.0-16.0 g/dl HCT 34.3 L 37.0-47.0 % MCV 72.2 L 80.0-98.0 fL MCH 22.1 L 27.0-33.0 pg MCHC 30.6 L 31.0-35.0 g/dl RDW 18.1 H 11.0-16.0 % PLT 368 160-400 X10*3/uL MPV 11.0 9.4-12.3 fL Neut Pct Auto 46.3 45-73 % ImGran Pct Auto 0.4 0.0-0.4 % Lymp Pct Auto 38.3 20-40 % Kenton Pct Auto 10.7 2-11 % Eos Pct Auto 3.6 0-4 % Baso Pct Auto 0.7 0-2 % NRBC Pct Auto 0.0 0.0-0.2 /100WBC ANC Neut Abs # 3.5 2.0-8.3 x10*3/uL ImGran Abs Auto 0.03 0.00-0.03 X10*3/uL Lymph Abs Auto 2.9 1.2-4.9 X10*3/uL Kenton Abs Auto 0.8 0.1-1.2 X10*3/uL Eos Abs Auto 0.3 0.0-0.4 X10*3/uL Baso Abs Auto 0.1 0.0-0.2 X10*3/uL NRBC Abs Auto 0.000 0.0-0.012 X10*3/uL Name: Rosa Brush Age/Sex: 60/F : 1965 Unit#: [id number] Attend Dr: Simi Fisher MD Re06/08/25 Status: DEP REF Location: [facility] Disch: SPEC : [id number] ALESSANDRO: 06/08/25 STATUS: COMP REQ : [id number] RECD: 06/08/[address]: Simi Fisher MD COMP: 06/08/25 ENTERED: 06/08/[address]: ORDERED: Met Prof Fast, IRON PROF, AST, ALT, Lipid Panel, Vitamin D 25-OH Test Result Flag Reference Sodium 137 135-145 mmol/L Potassium 4.0 3.3-5.1 mmol/L CL 105 96-108 mmol/L CO2 27 22-29 mmol/L Gap 9 L 12-20 BUN 6 L 9-16 mg/dL Creat 0.66 0.5-1.4 mg/dL eGFR > 60 Chronic Kidney Disease: Estimated GFR < 60 mL/min/1.73m2 Severe Kidney Disease: Estimated GFR < 15 mL/min/1.73m2 FBS 202 H 60-99 mg/dL A fasting glucose of 126 mg/dl or greater on more than one occasion is considered diagnostic of diabetes. CA 9.8 8.4-10.2 mg/dL Iron 27 L 30-160 mcg/dL TIBC 346 228-428 mcg/dL Saturation 8 L 15-50 % UIBC 319 ug/dL AST (GOT) 27 5-31 U/L ALT (GPT) 25 0-31 U/L Triglyceride 287 H <150 mg/dL Desirable Triglyceride: less than 150 mg/dL Borderline High Triglyceride 150-199 mg/dL High Triglyceride: 200-499 mg/dL Very High Triglyceride: greater than or equal to 5OO mg/dL Cholesterol 199 <200 mg/dL Desirable Cholesterol: less than 200 mg/dL Borderline High Cholesterol: 200-239 mg/dL High Cholesterol: greater than 239 mg/dL LDL Calculated 103 H <100 mg/dL Desirable LDL: less than 100 mg/dL Near Optimal/Above Optimal LDL: 110-129 mg/dL Borderline High LDL: 130-159 mg/dL High LDL: 160-189 mg/dL Very High LDL: greater than or equal to 190 mg/dL HDL 39 L >40 mg/dL Desirable HDL: greater than 40 mg/dL Note: This HDL assay may give artificially low results in patients with liver disease. Vitamin D 25-OH 72.5 >30 ng/mL Health Based Reference Values* < 20 ng/mL Deficient 20-30 ng/mL Insufficient > 30 ng/mL Sufficient Coding Level of Care Code Est Pt Level 4 (22375) Diagnoses Primary hypertension I10 Hypertension type: primary hypertension Hyperlipidemia, unspecified hyperlipidemia type E78.5 Hyperlipidemia type: unspecified Anemia, unspecified type D64.9 Anemia type: unspecified type Diabetes mellitus due to underlying condition, uncontrolled, with hyperglycemia, without long-term current use of insulin E08.65 Assessment & Plan Assessment & Plan (1) Hypertension: Comment: Will refill amlodipine. Patient will continue to record blood pressure values at home. Code(s): I10 - Essential (primary) hypertension Category: Medical Qualifiers: Hypertension type: primary hypertension Qualified Code(s): I10 - Essential (primary) hypertension Plan: Stopped amlodipine, switched to losartan 50 mg per tablet take 1 tablet daily, will see her back for follow-up in 3 months reinforced importance of following low-salt diet and getting regular exercise (2) Hyperlipidemia: Comment: Patient declines statin therapy at this time. Would like to try to lower lipid level with diet and exercise. Will continue to monitor. Code(s): E78.5 - Hyperlipidemia, unspecified Category: Medical Qualifiers: Hyperlipidemia type: unspecified Qualified Code(s): E78.5 - Hyperlipidemia, unspecified Plan: Reviewed recent fasting lab results with patient which showed elevated t riglycerides and improving LDL cholesterol, patient does not want to be started on a statin at present, states she wants to try lowering her cholesterol levels through diet and exercise. Will repeat another fasting lipid panel in 3 months (3) Anemia: Code(s): D64.9 - Anemia, unspecified Category: Medical Qualifiers: Anemia type: unspecified type Qualified Code(s): D64.9 - Anemia, unspec ified Plan: Started on ferrous sulfate 325 mg per tablet once a day. Patient cautioned that medication may constipate her and advised to try taking uxmp-[id number]-[id number] docusate sodium once a day 100 mg per capsule as needed for constipation. Patient also warned that stool will turn black when taking iron supplements. Will see her back for follow-up in 3 months will recheck another iron level, CBC (4) Diabetes mellitus due to underlying condition, uncontrolled, with hyperglycemia, without long-term current use of insulin: Code(s): E08.65 - Diabetes mellitus due to underlying condition with hyperglycemia Category: Medical Plan: Newly diagnosed diabetes mellitus with hemoglobin A1c now at 10.3%. Patient has been eating a lot of fruits and mainly eats vegetables, no fissure meat. No f amily history of diabetes mellitus. Patient does not want to start any medication at present time, would like to try controlling diabetes through diet and behavioral modifications. Advised on adherence to diabetic diet, cutting back on lot of foods but may eat berries. Up-to-date with her eye exam. Reminded to get it done yearly. Will see her back for follow-up in 3 months after fasting labs Orders: Orders Complete Blood Count Auto Diff 08/28/25 D64.9 - Anemia, unspecified, E08.65 - Diabetes mellitus due to underlying condition with hyperglycemia, E78.5 - Hyperlipidemia, unspecified, I10 - Essential (primary) hypertension, Z78.9 - Other specified health status Comprehensive Dagmar. Panel Fast 08/28/25 D64.9 - Anemia, unspecified, E08.65 - Diabetes mellitus due to underlying condition with hyperglycemia, E78.5 - Hyperlipidemia, unspecified, I10 - Essential (primary) hypertension, Z78.9 - Other specified health status Lipid Panel 08/28/25 D64.9 - Anemia, unspecified, E08.65 - Diabetes mellitus due to underlying condition with hyperglycemia, E78.5 - Hyperlipidemia, unspecified, I10 - Essential (primary) hypertension, Z78.9 - Other specified health status Hemoglobin A1c 08/28/25 D64.9 - Anemia, unspecified, E08.65 - Diabetes mellitus due to underlying condition with hyperglycemia, E78.5 - Hyperlipidemia, unspecified, I10 - Essential (primary) hypertension, Z78.9 - Other specified health status Vitamin D 25-OH Total 08/28/25 D64.9 - Anemia, unspecified, E08.65 - Diabetes mellitus due to underlying condition with hyperglycemia, E78.5 - Hyperlipidemia, unspecified, I10 - Essential (primary) hypertension, Z78.9 - Other specified health status AMB Hemoglobin A1c Today Z13.9 - Encounter for screening, unspecified IRON PROFILE 08/28/25 D64.9 - Anemia, unspecified, E08.65 - Diabetes mellitus due to underlying condition with hyperglycemia, E78.5 - Hyperlipidemia, unspecified, I10 - Essential (primary) hypertension, Z78.9 - Other specified health status Ferritin 08/28/25 D64.9 - Anemia, unspecified, E08.65 - Diabetes mellitus due to underlying condition with hyperglycemia, E78.5 - Hyperlipidemia, unspecified, I10 - Essential (primary) hypertension, Z78.9 - Other specified health status Microalbumin, Random (w Creat) 08/28/25 D64.9 - Anemia, unspecified, E08.65 - Diabetes mellitus due to underlying condition with hyperglycemia, E78.5 - Hyperlipidemia, unspecified, I10 - Essential (primary) hypertension, Z78.9 - Other specified health status Medications: New losartan 50 mg PO DAILY 30 tabs 4RF I10 - Essential (primary) hypertension ferrous sulfate 325 mg PO DAILY 90 tabs 1RF D64.9 - Anemia, unspecified Discontinued amlodipine Discontinued Reason: Doctor's Order 10 mg PO DAILY 90 tabs 0RF
[2025-06-09 09:58] VITALS: BP 144/84; PULSE 98; RESP 15; TEMP 36.8; O2SAT 98; BMI 26.8
== END 2025-06-09 10:47 | disposition home or self-care (01) ==
LOC: HO.HMCC 09:35
PROVIDERS: Visit Provider Internal Medicine
DX: I10 Essential (primary) hypertension (principal); E78.5 Hyperlipidemia, unspecified; D64.9 Anemia, unspecified; E08.65 Diabetes mellitus due to underlying condition with hyperglycemia; Z13.9 Encounter for screening, unspecified

== ENCOUNTER → 2025-06-09 09:34 | Outpatient (BNVA) | payer BC, SELFPAY | PROVIDERS: Visit Provider Internal Medicine | DX: I10 Essential (primary) hypertension (principal); E78.5 Hyperlipidemia, unspecified; D64.9 Anemia, unspecified; E08.65 Diabetes mellitus due to underlying condition with hyperglycemia | CPT/HCPCS: 83036 ==

== ENCOUNTER 2025-10-13 08:21 | Outpatient (REF) | payer BC, SELFPAY ==
--- OUTSIDE RECORDS SUMMARY | 2025-10-09 09:15 | XMS_ITS | Encounter Summary ---
Author Organization [facility] Address [address] [place] [address] Care Team Providers Care Purchasing Administrator Name Role Phone Noah Montoya MD Primary Care Provider [phone] Encounter Details Date Type Department Care Team (Latest Contact Info) Description 10/09/2025 9:15 AM EST Clinic Lab [facility] [address] [phone] Pre-employment drug screening (Primary Dx) Social History Tobacco Use Types Packs/Day Years Used Date Smoking Tobacco: Never Smokeless Tobacco: Never Alcohol Use Standard Drinks/Week Comments No 0 (1 standard drink = 0.6 oz pur e alcohol) Comments Unknown Sex and Gender Information Value Date Recorded Sex Assigned at Not on file Legal Sex Female 1:14 AM EST Gender Identity Not on file Sexual Orientation Not on file documented as of this encounter Progress Notes * Rikki Munroe - 10/09/2025 9:15 AM EST Pt here for pre employment uds mt documented in this encounter Plan of Treatment Pending Results Name Type Priority Associated Diagnoses Date /Time POC Urine Drug Screen Point of Care Testing Routine Pre-employment drug screening 10/09/2025 9:18 AM EST documented as of this encounter Visit Diagnoses Diagnosis Pre-employment drug screening- Primary Health examination of defined subpopulation documented in this encounter Care Teams Purchasing Administrator Relationship Specialty Start Date End Date Noah Montoya MD [address] [place] [address] PCP - General Internal Medicine 10/12/14 documented as of this encounter
--- OUTSIDE RECORDS SUMMARY | 2025-10-13 08:31 | XMS_ITS | Clinical Summary ---
Author Organization [address] Address [address] [place] [phone] Phone Care Team Providers Care Facilities Planner Name Role Phone Noah Montoya MD Primary Care Provider [phone] Encounters Date Type Department Care Team Description 10/09/2025 9:15 AM EST Clinic Lab Collection [facility] - [address] [phone] Pre-employment drug screening (Primary Dx) from Last 3 Months Surgical History Surgery Date Site/Laterality Comments CHOLECYSTECTOMY 2007 PROCEDURE: HISTORICAL CHOLECYSTECTOMY CERVICAL BIOPSY W/ LOOP ELECTRODE EXCISION 2001 PROCEDURE: RI CONIZATION CERVIX W/WO D&C RPR ELTRD EXC Medical History Medical History Date Comments Positive PPD 01/13/2015 DX:Positive PPD; COMMENT: H/o BCG injection Historical Medical DX 01/13/2015 DX:Abnorma l Pap smear; COMMENT: KELSY 2001 Family History Medical History Relation Name [...] on file Obstetrics History Plan of Treatment Health Maintenance Due Date Last Done Comments Colorectal Cancer Screening: Colonoscopy 1965 Hepatitis B Vaccines (1 of 3 - 19+ 3-dose series) 1986 Cervical Cancer Screening: Pap Smear 1988 Pneumococcal Vaccine: 50+ Years (1 of 1 - PCV) 2017 Zoster Vaccines (1 of 2) 2017 07/21/2004, 05/03 DTaP,Tdap,and Td Vaccines (3 - Td or Tdap) 08/21/2020 08/21/2010, 04/14/2004 HIV Screening 11/10/2022 Hepatitis C Screening 11/10/2022 Social Influencers of Health Screening 11/10/2022 Depression Screening 12/02/2024 COVID-19 Vaccine ( season) 2025 10/23/2024, 12/05/2021, 02/05/2021, Additional history exists Breast Cancer Screening 06/13/2026 06/13/20 24, 06/13/2024, 05/04/2023, Additional history exists RSV Immunization Adult Patients (1 - 1-dose 75+ series) 2042 MMR Vaccines Aged Out 06/22/2004, 05/23/2004 No lo nger eligible based on patient's age to complete this topic Varicella Vaccines Aged Out 07/21/2004, 05/23/2004 No longer eligible based on patient's age to complete this topic Influenza Vaccine Completed 10/05/2025, , 11/21/2023, Additional history exists HIB Vaccines Aged Out No longer eligi [...] age to complete this topic Meningococcal B Vaccine Aged Out No l onger eligible based on patient's age to complete [...] risk category Low (<15%) Procedure Note Nova Alvarez MD - 10/26/2024 This is a summary [...] Breast cancer risk category Low (<15%) Keri DEWITT IMG XR PROCEDURES Final Resul t from Last 3 Months or Most Recently Relevant to Health Maintenance Insurance [employer] Care Teams Facilities Planner Relationship Specialty Start Date End Date Noah Montoya MD [address] [place] [id number] PCP - General Internal Medicine 10/12/14
[2025-10-13 10:55] LABS: MANUAL DIFF FLAG NO
[2025-10-13 11:04] LABS: Hematocrit 40.4 % (37.0-47.0); Hemoglobin 13.7 g/dl (12.0-16.0); Imm Gran Abs Auto 0.01 X10*3/uL (0.00-0.03); Imm Gran Pct Auto 0.2 % (0.0-0.4); Lymphocytes Absolute Auto 2.4 X10*3/uL (1.2-4.9); Mean Corpuscular HGB Conc 33.9 g/dl (31.0-35.0); Mean Corpuscular Hemoglobin 29.0 pg (27.0-33.0); Mean Corpuscular Volume 85.4 fL (80.0-98.0); NRBC Abs Auto 0.000 X10*3/uL (0.0-0.012); NRBC Pct Auto 0.0 /100WBC (0.0-0.2); Platelet Count 364 X10*3/uL (160-400); Red Blood Count 4.73 X10*6/uL (4.20-5.50); White Blood Count 5.8 X10*3/uL (4.8-10.8)
[2025-10-13 11:40] LABS: Alanine Aminotransferase 25 U/L (0-31); Albumin Level 4.5 g/dL (3.5-5.0); Alkaline Phosphatase 88 U/L (39-117); Anion Gap 10 (12-20); Aspartate Amino Transferase 27 U/L (5-31); Blood Urea Nitrogen 5 mg/dL (9-16); Calcium 10.4 mg/dL (8.4-10.2); Carbon Dioxide 26 mmol/L (22-29); Chloride 110 mmol/L (96-108); Cholesterol 159 mg/dL (<200); Estimated Glomerular Filt Rate > 60; HDL Cholesterol 39 mg/dL (>40); Iron 103 mcg/dL (30-160); Percent Iron Saturation 38 % (15-50); Potassium 4.1 mmol/L (3.3-5.1); Sodium 142 mmol/L (135-145); Total Iron Binding Capacity 270 mcg/dL (228-428); Total Protein 6.6 g/dL (6.5-8.0); Triglycerides 169 mg/dL (<150); Unsaturated Iron Binding 167 ug/dL
[2025-10-13 11:55] LABS: Ferritin 63 ng/mL (10-250)
== END 2025-10-13 08:22 | disposition home or self-care (01) ==
LOC: HO.HMGCLDS 08:21
PROVIDERS: PCP Internal Medicine; Visit Provider Internal Medicine
DX: E13.65 Other specified diabetes mellitus with hyperglycemia (principal); I10 Essential (primary) hypertension; E78.5 Hyperlipidemia, unspecified; D64.9 Anemia, unspecified; Z78.9 Other specified health status
CPT/HCPCS: 36415; 80053; 80061; 82043; 82306; 82570; 82728; 83036; 83540; 85025

== ENCOUNTER 2025-10-14 08:09 | Outpatient (AMB) | payer BC, SELFPAY ==
--- OUTSIDE RECORDS SUMMARY | 2025-10-09 09:15 | XMS_ITS | Encounter Summary ---
Author Organization [facility] Address [address] [place] [address] Care Team Providers Care Color Strainer Name Role Phone Noah Montoya MD Primary Care Provider [phone] Encounter Details Date Type Department Care Team (Latest Contact Info) Description 10/09/2025 9:15 AM EST Clinic Lab Collection [facility] [address] [phone] Pre-employment drug screening (Primary Dx) Social History [...] subpopulation documented in this encounter Care Teams Color Strainer Relationship Specialty Start Date End Date oNah Montoya MD [address] [place] [address] PCP - General Internal Medicine 10/12/14 documented as of this encounter
[2025-10-14 08:16] VITALS: BP 130/90; PULSE 88; RESP 16; TEMP 36.7; O2SAT 98; BMI 24.4
--- NOTE | 2025-10-14 08:16 | A.OFFPC_ITS ---
Vital Signs 10/14/25 08:16 Height 5 ft 1 in Weight 129 lb BMI 24.4 BP 130/90 H Blood Pressure Location Lt brachial Position Sitting Respiration 16 Pulse 88 Pulse Source Pulse Oximeter Temp 98.0 F Temp Source Oral Pulse Oximetry (%) 98 Oxygen Delivery Method Room Air Intake Visit Reasons: 3m f/u dm Intake Note: Pt is here today for her 3mo. f/u DM Recreation Attendant Required: No Allergies No Known Allergies Allergy (Verified 10/14/25 08:48) Medication List - Last Reconciled 10/14/25 by Simi Fisher MD ferrous sulfate 325 mg PO DAILY losartan 50 mg PO DAILY Tobacco use date assessed: 10/14/25 Dental Screening Dental Screen Date: 10/14/25 Did you have a dental visit in the last 12 months?: Yes Did you have a dental problem in the last 6 months where you did not have access to dental care?: No Was dental information given to patient?: Patient has dentist HPI 3m f/u dm HPI Details 60-year-old lady with history of diabete s mellitus, hypertension, here today for her follow-up. Patient has been taking losartan 50 mg once a day for hypertension which has been helping, current blood pressure now is 130/90. She has diabetes mellitus which she has been trying to control through diet and exercise. She has cut back on eating a lot of carbohydrates, eating more fresh fruit vegetables and lean meat. She also has been exercising 30 minutes daily and has lost 13 lb in the last 3 months Her hemoglobin A1c has dropped from 10.3 to 7.4% since last visit here in 3 months ago, and triglycerides is almost back to normal at 169 mg/dL with normal LDL cholesterol and total cholesterol level. Patient already received her flu vaccine. Up-to-date with her diabetes retinopathy screening, goes to [facility], copy of report requested. She is no longer anemic, with latest CBC showing normal results. Has been taking her ferrous sulfate 325 mg daily. Overall patient states that she is feeling better, has more energy, and without any complaints at present time. [facility] Medical History (Updated 10/14/25 @ 09:06 by Simi Fisher MD) History of anemia History of vitamin D deficiency Diabetes mellitus due to underlying condition, uncontrolled, with hyperglycemia, without long-term current use of insulin Hyperlipidemia Anemia HTN (hypertension) Vitamin D deficiency Surgical History Hx laparoscopic cholecystectomy Family History Mother Non-insulin dependent type 2 diabetes mellitus Social History Housing: Condominium Are you a primary director of primary care to a significant other at home: No Do you presently have visiting nurse or other home services: No Alcohol intake: never Patient Tobacco Use Status: Never used Tobacco e-Cigarette/Vaping Use: Never Used service: No Current occupational status: employed 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 1. Little interest or pleasure in doing things: not at all 2. Feeling down, depressed, or hopeless: not at all 3. Trouble falling or staying asleep, or sleeping too much: not at all 4. Feeling tired or having little energy: not at all 5. Poor appetite or overeating: not at all 6. Feeling bad about yourself - or that you are a failure or have let yourself or your family down: not at all 7. Trouble concentrating on things, such as reading the newspaper or watching television: not at all 8. Moving or speaking so slowly that other people could have noticed. Or the opposite - being so fidgety or restless that you have been moving around a lot more than usual: not at all 9. Thoughts that you would be better off or of hurting yourself in some way: not at all Total score: 0 Depression Screening Interpretation: Negative Depression Screening Done: Yes Source: Developed by Drs. Musa Ch, Nicolasa Back, Abdias Nunez and colleagues, with an educational bakari from [employer]. Thrive Questionnaire Date Thrive assessed: 02/11/25 I am a: Patient What is your living situation today?: I have a steady place to live Within the past 12 months, did the food you bought not last and you didn't have the money to get more?: Never true Within the past 12 months, did you worry whether your food would run out before you got money to buy more?: Never true Do you have trouble paying for medicines?: No Do you have trouble getting transportation to medical appointments?: No Do you have trouble paying your heating and electricity bill?: No Do you have trouble taking care of your child, family member or friend?: No Do you have trouble with day-to-day activities such as bathing, preparing meals, shopping, managing finances, etc.?: No Are you currently unemployed and looking for a job?: No Are you interested in more education?: No Please select the resources that you would like help with: None Currently or been in a relationship where the following occur: No concerns reported THRIVE Score: 0 AUDIT C Alcohol Use Questionnaire (AUDIT-C) 1. How often do you have a drink containing alcohol?: Never Total Score: 0 WONG-7 AMB Questionnaire WONG-7 Date WONG - 7 assessed: 02/11/25 Feeling nervous, anxious, or on edge: 0 = Not at all Not being able to stop or control worryin = Not at all Worrying too much about different things: 0 = Not at all Trouble relaxin = Not at all Being so restless that it is hard to sit still: 0 = Not at all Becoming easily annoyed or irritable: 0 = Not at all Feeling afraid as if something awful might happen: 0 = Not at all Total WONG-7 score (0-4 normal; 5-9 mild; 10-14 moderate; 15-21 severe): 0 Source: Developed by Drs. Musa Ch, Nicolasa Back, Abdias Nunez and colleagues, with an educational bakari from [employer]. Review of Systems Const Denies body aches, Denies fatigue, Denies headache(s) and Denies lethargy Eyes Details: Goes to [facility], up-to-date with her eye exam, no retinopathy seen Reports blurry vision (Left eye due to cataract) ENT Reports no additional complaints and Denies headache(s) Card Reports no additional complaints Resp Reports no additional complaints GI Denies abdominal pain, Denies belching, Denies melena, Denies bloating, Denies change in bowel habits, Denies excessive flatus and Denies heartburn Reports no additional complaints Musc Reports no additional complaints Skin/Breast Denies breast pain, Denies breast mass and Denies rash Neuro Reports no additional complaints and Denies headache(s) Psych Reports no additional complaints Endo Denies fatigue, Denies polyphagia, Denies polydipsia and Denies polyuria Vicente/Lymph Reports no additional complaints Aller/Immun Reports no additional complaints Physical exam (Primary Care) Vital Signs: Last Vital Signs Temp 98.0 F 10/14/25 08:16 Pulse 88 10/14/25 08:16 Resp 16 10/14/25 08:16 BP 130/90 H 10/14/25 08:16 Pulse Ox 98 10/14/25 08:16 Oxygen Delivery Method Room Air 10/14/25 08:16 BMI result Body Mass Index 24.4 Tobacco/Smoking Status: Tobacco use Status Tobacco use date assessed 10/14/25 10/14/25 08:20 Patient Tobacco Use Status Never used Tobacco 10/14/25 08:20 e-Cigarette/Vaping Use Never Used 10/14/25 08:20 PHQ-9: PHQ-9 Score PHQ-9: Total score 0 10/14/25 08:47 Depression Screening Interpretation: Negative Thrive Assessment: Date of Thrive Assessment Date Thrive assessed 02/11/25 10/14/25 08:20 Currently or been in a relationship where the following occur: No concerns reported Const General: comfortable, no acute distress and alert Orientation/consciousness: patient oriented x3 HENMT Ears: external ears normal General nose exam: Normal external nose present Mouth: Normal oral and palatal mucosa present and moist mucous membranes Eyes General: appearance normal, both eyes and all related structures Conjunctivae: conjunctivae normal Sclerae: sclerae normal Pupils: Equal, round and reactive pupils present EOM: EOMs intact bilaterally Neck Neck: Yes full ROM, Yes no lymphadenopathy and Yes supple Resp Effort & Inspection: normal respiratory effort and able to speak in complete sentences Auscultation: clear to auscultation bilaterally Cardio Rate: regular rate Rhythm: regular rhythm Heart sounds: S1 normal heart sound present and S2 normal heart sound present GI Palpation (GI): Soft to palpation, nontender and no masses Auscultation: normal bowel sounds Back/Spine/Pelvis Back: No back tenderness Skin General skin exam: no rashes or lesions noted Neuro General: patient oriented x3, gait normal, tone normal, moves all extremities, Normal light touch and pain sensation and no focal motor deficits Cranial nerves: Yes CN's II-XII intact bilaterally and Yes Equal, round and reactive pupils present Cognition (Neuro): normal cognition Extrem General: Yes full ROM, Yes no joint enlargement, Yes no clubbing, cyanosis or edema and Yes no calf tenderness Psych Appearance: grossly normal and well kempt Mental Status: mental status grossly normal Speech and movement: Normal speech and movement present Affect: normal affect Results Reviewed Results Reviewed: Name: Rosa Brush Age/Sex: 60/F : 1965 Unit#: [id number] Attend Dr: Simi Fisher MD Re10/13/25 Status: DEP REF Location: [facility] Disch: SPEC : [id number] ALESSANDRO: 10/13/25 STATUS: COMP REQ : [id number] RECD: 10/13/[address]: Simi Fisher MD COMP: 10/13/25 ENTERED: 10/13/[address] [facility] DR: ORDERED: CBC Auto Diff Test Result Flag Reference WBC 5.8 4.8-10.8 X10*3/uL RBC 4.73 4.20-5.50 X10*6/uL HGB 13.7 # 12.0-16.0 g/dl HCT 40.4 37.0-47.0 % MCV 85.4 80.0-98.0 fL MCH 29.0 27.0-33.0 pg MCHC 33.9 31.0-35.0 g/dl RDW 14.2 11.0-16.0 % PLT 364 160-400 X10*3/uL MPV 11.0 9.4-12.3 fL Neut Pct Auto 46.5 45-73 % ImGran Pct Auto 0.2 0.0-0.4 % Lymp Pct Auto 42.0 H 20-40 % Furnas Pct Auto 8.0 2-11 % Eos Pct Auto 2.8 0-4 % Baso Pct Auto 0.5 0-2 % NRBC Pct Auto 0.0 0.0-0.2 /100WBC ANC Neut Abs # 2.7 2.0-8.3 x10*3/uL ImGran Abs Auto 0.01 0.00-0.03 X 10*3/uL Lymph Abs Auto 2.4 1.2-4.9 X10*3/uL Furnas Abs Auto 0.5 0.1-1.2 X10*3/uL Eos Abs Auto 0.2 0.0-0.4 X10*3/uL Baso Abs Auto 0.0 0.0-0.2 X10*3/uL NRBC Abs Auto 0.000 0.0-0.012 X10*3/uL Laboratory Tests 06/09/25 10/13/25 10/13/25 10:26 08:25 09:15 Estimat Average Glucose 166 Hgb A1c (Clinic) 10.3 H Hemoglobin A1c % 7.4 H Urine Creatinine 18.51 Urine Microalbumin < 5.0 Microalb/Creat Ratio TNP Coding Level of Care Code Est Pt Level 4 (13705) Complex EM visit Add On G2211 Diagnoses Diabetes mellitus due to underlying condition, uncontrolled, with hyperglycemia, without long-term current use of insulin E08.65 Hypertension I10 Hyperlipidemia, unspecified hyperlipidemia type E78.5 Hyperlipidemia type: unspecified History of anemia Z86.2 Assessment & Plan Assessment & Plan (1) Diabetes mellitus due to underlying condition, uncontrolled, with hyperglycemia, without long-term current use of insulin: Code(s): E08.65 - Diabetes mellitus due to underlying condition with hyperglycemia Category: Medical Plan: Patient congratulated on getting her diabetes mellitus controlled. Hemoglobin A1c almost at goal at 7.4% down from 10.3 % 3 months ago continue with adherence to healthy eating habits, and getting regular exercise. Up-to-date with her diabetes retinopathy screening, already received her flu vaccine. No micr oalbuminuria noted on recent labs done. Will see her back for follow-up in 3 months after fasting labs (2) Hypertension: Code(s): I10 - Essential (primary) hypertension Category: Medical Plan: Blood pressure at goal of less than 130/80. Continue with losartan 50 mg daily Reinforced importance of following a low sodium diet, getting regular exercise, and lowering stress levels. (3) Hyperlipidemia: Code(s): E78.5 - Hyperlipidemia, unspecified Category: Medical Qualifiers: Hyperlipidemia type: unspecified Qualified Code(s): E78.5 - Hyperlipidemia, unspecified Plan: Recent fasting lipids showed normal LDL cholesterol and total cholesterol with triglycerides almost back to normal at 169 mg/dL. Continue with adherence to healthy eating habits and regular exercise. Will repeat another fasting lipid in 3 months (4) History of anemia: Code(s): Z86.2 - Personal history of diseases of the blood and blood-forming organs and certain disorders involving the immune mechanism Category: Medical Plan: Anemia has resolved, with recent CBC showing results within normal findings. May just take her ferrous sulfate 325 mg 2 to 3 times a week, continue with eating iron rich foods, will repeat another CBC in 3 months Orders: Orders Complete Blood Count Auto Diff 3 Months E08.65 - Diabetes mellitus due to underlying condition with hyperglycemia, E78.5 - Hyperlipidemia, unspecified, I10 - Essential (primary) hypertension, Z86.2 - Personal history of diseases of the blood and blood-forming organs and certain disorders involving the immune mechanism, Z86.39 - Personal history of other endocrine, nutritional and metabolic disease Comprehensive Ault. Panel Fast 3 Months E08.65 - Diabetes mellitus due to underlying condition with hyperglycemia, E78.5 - Hyperlipidemia, unspecified, I10 - Essential (primary) hypertension, Z86.2 - Personal history of diseases of the blood and blood-forming organs and certain disorders involving the immune mechanism, Z86.39 - Personal history of other endocrine, nutritional and metabolic disease Lipid Panel 3 Months E08.65 - Diabetes mellitus due to underlying condition with hyperglycemia, E78.5 - Hyperlipidemia, unspecified, I10 - Essential (primary) hypertension, Z86.2 - Personal history of diseases of the blood and blood-forming organs and certain disorders involving the immune mechanism, Z86.39 - Personal history of other endocrine, nutritional and metabolic disease Hemoglobin A1c 3 Months E08.65 - Diabetes mellitus due to underlying condition with hyperglycemia, E78.5 - Hyperlipidemia, unspecified, I10 - Essential (primary) hypertension, Z86.2 - Personal history of diseases of the blood and blood-forming organs and certain disorders involving the immune mechanism, Z86.39 - Personal history of other endocrine, nutritional and metabolic disease Vitamin D 25-OH Total 3 Months E08.65 - Diabetes mellitus due to underlying condition with hyperglycemia, E78.5 - Hyperlipidemia, unspecified, I10 - Essential (primary) hypertension, Z86.2 - Personal history of diseases of the blood and blood-forming organs and certain disorders involving the immune mechanism, Z86.39 - Personal history of other endocrine, nutritional and metabolic disease Medications: Refilled losartan 50 mg PO DAILY 90 tabs 4RF I10 - Essential (primary) hypertension
--- OUTSIDE RECORDS SUMMARY | 2025-10-14 08:23 | XMS_ITS | Clinical Summary ---
Author Organization [address] Address [address] [place] [id number] Phone Care Team Providers Care Food Technician Name Role Phone Noha Montoya MD Primary Care Provider [phone] Encounters Date Type Department Care Team Description 10/09/2025 9:15 AM EST Clinic Lab Collection [facility] - [address] [id number] Pre-employment drug screening (Primary Dx) from Last 3 Months Surgical History Surgery Date Site/Laterality Comments CHOLECYSTECTOMY 2007 PROCEDURE: HISTORICAL CHOLECYSTECTOMY CERVICAL BIOPSY W/ LOOP ELECTRODE EXCISION 2001 PROCEDURE: ND CONIZATION CERVIX W/WO D&C RPR ELTRD EXC [...] Health Maintenance Insurance [employer] Care Teams Food Technician Relationship Specialty Start Date End Date Noah Montoya MD [address] [place] [id number] PCP - General Internal Medicine 10/12/14
== END 2025-10-14 09:17 | disposition home or self-care (01) ==
LOC: HO.HMCC 08:10
PROVIDERS: Visit Provider Internal Medicine
DX: E78.5 Hyperlipidemia, unspecified (principal); E08.65 Diabetes mellitus due to underlying condition with hyperglycemia; I10 Essential (primary) hypertension; Z86.2 Personal history of diseases of the blood and blood-forming organs and certain disorders involving the immune mechanism